=== PATIENT | female | born 1950 | race Caucasian/White ===

== ENCOUNTER → 2016-02-27 | Outpatient (CLI) | payer BC, OTHER ==
--- NOTE | 2016-02-28 07:22 | DIAGNOSTIC IMAGING REPORT ---
RIGHT KNEE INCLUDING BILATERAL STANDING AP VIEWS CLINICAL HISTORY: Right knee pain COMPARISON: None. DISCUSSION: The bones are mildly osteopenic. There are mild osteoarthritic changes present most pronounced in the lateral joint compartment. There are no acute fractures. No destructive lesions are visualized. IMPRESSION: 1. Mild osteoarthritic changes 2. No fractures identified. Electronically signed by: Iam Smith M.D. 02/28/2016 7:20 AM Dictated Date/Time: 02/28/2016 7:20 AM
== END | disposition home or self-care (01) ==
LOC: C.RDSM 13:13
PROVIDERS: ATTEND Physical Medicine & Rehabilitation Sports Medicine
DX: M25.561 Pain in right knee (principal)

== ENCOUNTER → 2016-10-03 | Outpatient (CLI) | payer OTHER ==
--- NOTE | 2016-10-03 10:35 | DIAGNOSTIC IMAGING REPORT ---
RIGHT FIFTH TOE 3 VIEWS CLINICAL HISTORY: Fracture. Follow-up study. COMPARISON: Outside radiograph dated 08/20/2016 DISCUSSION: There is a healing fracture involving the proximal phalanx of the fifth toe. There is no significant change in alignment. There are no dislocations. IMPRESSION: Healing nondisplaced fracture involving the proximal phalanx of the fifth toe Electronically signed by: Iam Smith M.D. 10/03/2016 10:34 AM Dictated Date/Time: 10/03/2016 10:33 AM
== END | disposition home or self-care (01) ==
LOC: C.RDSM 15:02
PROVIDERS: ATTEND Physician Assistant
DX: Z09 Encounter for follow-up examination after completed treatment for conditions other than malignant neoplasm (principal); S92.514D Nondisplaced fracture of proximal phalanx of right lesser toe(s), subsequent encounter for fracture with routine healing; X58.XXXD Exposure to other specified factors, subsequent encounter

== ENCOUNTER 2022-04-07 03:10 | Inpatient (IN) ==
[2022-04-07] MEDS ORDERED: SODIUM CHLORIDE 0.9% 1000ML 1,000 ML IV ONE ×2 (03:20→06:00)
[2022-04-07] MEDS ORDERED: ONDANSETRON INJ 2 MG/ML 2 ML VIAL IV STA (03:20)
[2022-04-07] MEDS ORDERED: MoRPHine SULFATE 4 MG/ML 1 ML CARP\\VIAL IV STA ×2 (03:20→04:22)
--- NOTE | 2022-04-07 03:22 | Emergency Department Note ---
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 became concerned about her heart rate when she was complaining of the symptoms earlier this morning and therefore sent her to the ED for further evaluation. On arrival to the ED the patient is tachycardic, she is otherwise hemodynamically stable, she is noted to have a fever at 38.5 on arrival. Patient states that her pain began relatively acutely earlier this evening at [facility]. She states she does does have some pain in her chest as well as her upper back on arrival. Patient denies any nausea or vomiting, denies any abdominal pain. Patient is saturating well on room air on arrival. ROS: - Per HPI *Outpatient medications and allergy history reviewed. *Pertinent external medical records reviewed. PE: General: Alert, no acute distress HEENT: Normocephalic, trachea midline Eyes: Extraocular eye movement is intact, no scleral erythema Pulmonary: Clear to auscultation bilaterally, no wheezing Cardio: Tachycardic rate and regular rhythm GI: Abdomen is soft, nontender, surgical drain noted to the right side of the abdomen without surrounding erythema or purulence, feeding tube in place : No suprapubic tenderness MSK: No evidence of trauma or malformation of the extremities, no edema Skin: No evidence of rash Neuro: Alert, no focal deficits Psychiatric: Cooperative telemetry monitor: (As interpreted by myself): - An order was placed for continuous cardiac monitoring - Patient was noted to be in sinus tachycardia with a rate of 132 EKG: (As interpreted by myself): Rate: 143 Rhythm: Sinus tachycardia Intervals: Within normal limits ST changes: No ST elevation Time: 0316 Interventions provided in ED: -IV fluid bolus, IV morphine CTA CHEST: Impression: There is a stent seen in the distal thoracic esophagus and proximal stomach. There are small bilateral pleural effusions with dependent atelectasis. No acute pulmonary embolism. No aortic dissection. Radiologist: Marcial Toribio MD Medical Decision Making: Patient presented to the emergency department with a chief complaint of chest pain and back pain, this began acutely earlier tonight at . Patient was noted to be tachycardic by staff, EMS was contacted and the patient was transported to the ED. On arrival here to the ED the patient is tachycardic in the 140s, EKG shows sinus tachycardia. IV was established and lab work obtained, patient was maintained on lunchroom monitor. Septic work-up was initiated given the patient's fever on presentation at 38.5 F. Lab work shows a leukocytosis greater than 15,000, blood cultures were drawn in the ED, procalcitonin is low, high-sensitivity troponin is mildly elevated, l actic acid is within normal limits. EKG does not show any acute ischemic changes. Chest x-ray per my interpretation shows bibasilar consolidations, CT angiography of the chest was obtained given the patient's tachycardia and chest discomfort, this does not show any evidence of pulmonary embolism, there is atelectasis noted at the bilateral bases, I suspect she may have a bilateral lower lobe pneumonia which was previously noted on CT imaging as well on 03/29. Esophageal stent is noted without any mention of abnormality by stat rad radiology. Drain surrounding the sent is noted on CT imaging by myself but not commented on by stat rad radiology. In regards to the patient surgical history she tells me that this coming Saturday she has an appointment at [facility] to have the stent in her esophagus removed. She believes this is when they are planning on removing the drain to the right side of her abdomen as well that drained the area surrounding the stent. Patient currently also has a feeding tube. On my reassessment following IV morphine patient states her pain is improved. Her tachycardia did improve as well to about 120 from 140s. Her blood pressure remained stable. Patient did have a desaturation to 88% on room air after her second dose of morphine and was placed on nasal cannula oxygen with good improvement. Given the patient's fever and leukocytosis in addition to hypoxia here in the ED and tachycardia, I do feel she would benefit from admission for trending of troponin levels, serial EKGs as needed, follow-up on blood cultures, treatment with IV antibiotics. Patient was given a dose of IV cefepime here in the ED. I discussed all the above findings with the patient and her at the bedside and they are in agreement for admission. Patient was also covered with vancomycin and Zosyn for broad-spectrum coverage and anaerobic coverage prior to admission. [facility] hospitalist service was consulted for admission, and the patient was placed for admission in stable condition. Consultants: Hospitalist service Disposition discussion held by myself with: Patient and at bedside * CRITICAL CARE TIME: ( 40 ) minutes -Stabilization of hypoxia with oxygen saturation 88% on room air requiring [place] pplemental oxygen for correction, time spent at the bedside, interpretation of diagnostic studies, discussion with other healthcare providers and arrangement of admission. Diagnosis: 1. Bilateral lower lobe pneumonia 2. Fever 3. Hypoxia, acute 4. Leukocytosis 5. Elevated high-sensitivity troponin level 6. Chest pain, acute, nonspecific 7. Tachycardia 8. Upper back pain, acute Disposition: Admission Marcin Patrick DO Emergency Medicine Past Med/Surg History Medical History Esophageal rupture High cholesterol Hypertension Hypothyroidism Right knee DJD Stomach ulcer Surgical History H/O arthroscopy of right knee History of bunionectomy Family History Other Heart disease Social History Smoking Status: Never smoker Hx Alcohol Use: No marital status: current occupational status: retired How many Children do You have: 2 Feels Safe at Home: Yes Physical Activity Frequency Comment: ACTIVE Allergies Allergies Allergy/AdvReac Type Severity Reaction Status Date / Time Latex, Natural Rubber Allergy Unknown Unknown Verified 03/28/22 01:01 Home Meds Home Medications Medication Instructions Recorded Confirmed levothyroxine 75 mcg capsule 75 mcg DAILYBB 06/29/21 03/28/22 acetaminophen 325 mg/10.15 mL oral 975 mg feeding tube Q8H 3250 MG/24 03/28/22 03/28/22 solution HOURS bisacodyl 10 mg rectal suppository 10 mg [place] DAILY PRN Constipation 03/28/22 03/28/22 docusate sodium 50 mg/5 mL oral 100 mg feeding tube BID 03/28/22 03/28/22 liquid enoxaparin 40 mg/0.4 mL 40 mg subcut DAILY 03/28/22 03/28/22 subcutaneous syringe (Lovenox) famotidine 20 mg tablet 20 mg feeding tube BID 03/28/22 03/28/22 fluconazole 100 mg tablet 400 mg feeding tube DAILY 03/28/22 03/28/22 lidocaine 5 % topical patch 1 patch topical DAILY 03/28/22 03/28/22 loratadine 10 mg tablet (Claritin) 10 mg feeding tube HS 03/28/22 03/28/22 magnesium hydroxide 400 mg/5 mL 30 ml feeding tube DAILY PRN 03/28/22 03/28/22 oral suspension (Milk of Magnesia) Constipation metoprolol tartrate 25 mg tablet 25 mg feeding tube BID 03/28/22 03/28/22 naloxone 4 mg/actuation nasal spray 4 mg intranasal ONCE PRN Opioid 03/28/22 03/28/22 Overdose ondansetron HCl 4 mg tablet 8 mg feeding tube Q6H PRN 03/28/22 03/28/22 NAUSEA/VOMITING phenol-phenolate sodium mucosal 1 spray PO Q2H PRN SCRATCHY THROAT 03/28/22 03/28/22 aerosol spray polyethylene glycol 3350 17 17 g feeding tube QDL PRN 03/28/22 03/28/22 gram/dose oral powder (Miralax) Constipation prochlorperazine maleate 5 mg 5 mg feeding tube Q8H PRN 03/28/22 03/28/22 tablet (Compazine) NAUSEA/VOMITING sennosides 8.6 mg tablet (senna) 17.2 mg feeding tube HS 03/28/22 03/28/22 sennosides 8.6 mg-docusate sodium 1 tab-cap QDL PRN Constipation 03/28/22 03/28/22 50 mg tablet (Senokot-S) tramadol 50 mg tablet 50 mg feeding tube Q6H PRN Pain 03/28/22 03/28/22 (Scale Score 7-10) Results & Data (ED) Vital Signs Vital Signs - 24 hr 04/07/22 03:26 04/07/22 03:27 04/07/22 04:07 Temperature 38.5 C H Temperature Source Oral Pulse Rate 141 H Pulse Rate [Right] 127 H Pulse Rate from SpO2 Sensor Pulse Rhythm [Right] Regular Pulse Strength [Right] Normal Respiratory Rate 20 16 Respiratory Effort / Characteristics Non-Labored Spontaneous Non-Labored Spontaneous Respiratory Depth Normal Normal Blood Pressure 147/114 H Blood Pressure [Right Arm] 173/87 H Blood Pressure Mean 125 Blood Pressure Mean [Right Arm] 115 Blood Pressure Position Lying Blood Pressure Position [Right Arm] Lying Pulse Oximetry 96 96 96 Oxygen Delivery Method Room Air Room Air Room Air Sepsis Recent Fever Within 48 Hours Yes Sepsis New/Unexplained Change in Mental Status N/A Sepsis Action Taken by Nursing Physician Notified Oxygen Flow Rate - Titration Pulse Oximetry Post Tiitration 04/07/22 04:49 04/07/22 03:28 04/07/22 03:30 Temperature Temperature Source Pulse Rate 140 H 144 H Pulse Rate [Right] Pulse Rate from SpO2 Sensor 141 H 144 H Pulse Rhythm [Right] Pulse Strength [Right] Respiratory Rate 28 H 30 H Respiratory Effort / Characteristics Respiratory Depth Blood Pressure Blood Pressure [Right Arm] Blood Pressure Mean Blood Pressure Mean [Right Arm] Blood Pressure Position Blood Pressure Position [Right Arm] Pulse Oximetry 88 L 95 94 Oxygen Delivery Method Room Air Sepsis Recent Fever Within 48 Hours Sepsis New/Unexplained Change in Mental Status Sepsis Action Taken by Nursing Oxygen Flow Rate - Titration 2 Pulse Oximetry Post Tiitration 94 04/07/22 03:45 04/07/22 04:00 04/07/22 04:08 Temperature Temperature Source Pulse Rate 135 H 125 H 127 H Pulse Rate [Right] Pulse Rate from SpO2 Sensor 179 H 125 H Pulse Rhythm [Right] Pulse Strength [Right] Respiratory Rate 28 H 28 H 24 Respiratory Effort / Characteristics Respiratory Depth Blood Pressure Blood Pressure [Right Arm] Blood Pressure Mean Blood Pressure Mean [Right Arm] Blood Pressure Position Blood Pressure Position [Right Arm] Pulse Oximetry 92 Oxygen Delivery Method Sepsis Recent Fever Within 48 Hours Sepsis New/Unexplained Change in Mental Status Sepsis Action Taken by Nursing Oxygen Flow Rate - Titration Pulse Oximetry Post Tiitration 04/07/22 04:08 04/07/22 04:15 04/07/22 04:30 Temperature Temperature Source Pulse Rate 131 H Pulse Rate [Right] Pulse Rate from SpO2 Sensor 131 H Pulse Rhythm [Right] Pulse Strength [Right] Respiratory Rate 24 Respiratory Effort / Characteristics Respiratory Depth Blood Pressure 173/87 H 146/69 H Blood Pressure [Right Arm] Blood Pressure Mean 115 94 Blood Pressure Mean [Right Arm] Blood Pressure Position Blood Pressure Position [Right Arm] Pulse Oximetry 93 Oxygen Delivery Method Sepsis Recent Fever Within 48 Hours Sepsis New/Unexplained Change in Mental Status Sepsis Action Taken by Nursing Oxygen Flow Rate - Titration Pulse Oximetry Post Tiitration 04/07/22 04:30 Temperature Temperature Source Pulse Rate 135 H Pulse Rate [Right] Pulse Rate from SpO2 Sensor 136 H Pulse Rhythm [Right] Pulse Strength [Right] Respiratory Rate 23 Respiratory Effort / Characteristics Respiratory Depth Blood Pressure Blood Pressure [Right Arm] Blood Pressure Mean Blood Pressure Mean [Right Arm] Blood Pressure Position Blood Pressure Position [Right Arm] Pulse Oximetry 94 Oxygen Delivery Method Sepsis Recent Fever Within 48 Hours Sepsis New/Unexplained Change in Mental Status Sepsis Action Taken by Nursing Oxygen Flow Rate - Titration Pulse Oximetry Post Tiitration Laboratory Data 04/07/22 03:37 04/07/22 03:37 Lab Results 04/07/22 04/07/22 04/07/22 Range/Units 03:37 03:37 03:37 WBC 15.80 H (4.8-10.8) K/ul RBC 4.26 (4.20-5.40) M/uL Hgb 11.6 L (12.0-16.0) g/dl Hct 35.3 L (37.0-47.0) % MCV 82.9 (80.0-100.0) fL MCH 27.2 (25.0-34.0) pg MCHC 32.9 (32.0-36.0) g/dL RDW Std Deviation 47.7 H (36.4-46.3) fL RDW Coeff of [place] 15.7 H (11.5-14.5) % Plt Count 636 H (130-400) K/uL MPV 9.3 L (9.4-12.4) fL Immature Gran % (Auto) 2.5 % Neut % (Auto) 83.4 % Lymph % (Auto) 6.9 % [place] % (Auto) 6.8 % Eos % (Auto) 0.0 % Baso % (Auto) 0.4 % Neut # (Auto) 13.17 H (1.40-6.50) K/uL Lymph # (Auto) 1.09 L (1.2-3.4) K/uL [place] # (Auto) 1.08 H (0.11-0.59) K/uL Eos # (Auto) 0.00 (0-0.50) K/uL Baso # (Auto) 0.06 (0-0.2) K/uL Immature Gran # (Auto) 0.40 H (0.01-0.20) K/uL PT (9.0-12.0) Seconds INR (0.9-1.1) VBG pH (7.36-7.41) VBG pCO2 (38-50) mmHg VBG pO2 mmHg VBG HCO3 mmol/L VBG O2 Saturation % VBG Base Excess mEq/L Sodium 132 L (136-145) mmol/L Potassium 3.9 (3.5-5.1) mmol/L Chloride 94 L (98-107) mmol/L Carbon Dioxide 26 (21-32) mmol/L Anion Gap 12 H (3-11) BUN 9 (6-23) mg/dl Creatinine 0.62 (0.6-1.2) mg/dl Est Cr Clr Drug Dosing 76.0 ml/min Est GFR ( Amer) 104.4 ml/min Est GFR (Non-Af Amer) 90.1 ml/min BUN/Creatinine Ratio 14.5 (10-20) Glucose 120 H (70-99(Fasting)) mg/dl Lactate 1.2 (0.4-2.0) mmol/L Calcium 10.0 (8.5-10.1) mg/dl Magnesium 1.7 (1.7-2.4) mg/dl Total Bilirubin 0.4 (0.2-1.0) mg/dl Direct Bilirubin 0.0 (0-0.2) mg/dl AST 18 (13-39) U/L ALT 32 (7-52) U/L Alkaline Phosphatase 106 H (34-104) U/L Troponin I High Sens 14.8 H (0-14) pg/ml Total Protein 8.6 H (6.0-8.3) gm/dl Albumin 3.5 (3.4-5.0) gm/dl Procalcitonin (0-0.5) ng/ml SARS-CoV-2 (PCR) (Negative) Influenza Type A (PCR) (Neg) Influenza Type B (PCR) (Neg) RSV (RT-PCR) (Neg) 04/07/22 04/07/22 04/07/22 Range/Units 03:37 03:37 03:37 WBC (4.8-10.8) K/ul RBC (4.20-5.40) M/uL Hgb (12.0-16.0) g/dl Hct (37.0-47.0) % MCV (80.0-100.0) fL MCH (25.0-34.0) pg MCHC (32.0-36.0) g/dL RDW Std Deviation (36.4-46.3) fL RDW Coeff of [place] (11.5-14.5) % Plt Count (130-400) K/uL MPV (9.4-12.4) fL Immature Gran % (Auto) % Neut % (Auto) % Lymph % (Auto) % [place] % (Auto) % Eos % (Auto) % Baso % (Auto) % Neut # (Auto) (1.40-6.50) K/uL Lymph # (Auto) (1.2-3.4) K/uL [place] # (Auto) (0.11-0.59) K/uL Eos # (Auto) (0-0.50) K/uL Baso # (Auto) (0-0.2) K/uL Immature Gran # (Auto) (0.01-0.20) K/uL PT 11.4 (9.0-12.0) Seconds INR 1.1 (0.9-1.1) VBG pH 7.48 H (7.36-7.41) VBG pCO2 39 (38-50) mmHg VBG pO2 26 mmHg VBG HCO3 29 mmol/L VBG O2 Saturation < 60.0 % VBG Base Excess 5.2 mEq/L Sodium (136-145) mmol/L Potassium (3.5-5.1) mmol/L Chloride (98-107) mmol/L Carbon Dioxide (21-32) mmol/L Anion Gap (3-11) BUN (6-23) mg/dl Creatinine (0.6-1.2) mg/dl Est Cr Clr Drug Dosing ml/min Est GFR ( Amer) ml/min Est GFR (Non-Af Amer) ml/min BUN/Creatinine Ratio (10-20) Glucose (70-99(Fasting)) mg/dl Lactate (0.4-2.0) mmol/L Calcium (8.5-10.1) mg/dl Magnesium (1.7-2.4) mg/dl Total Bilirubin (0.2-1.0) mg/dl Direct Bilirubin (0-0.2) mg/dl AST (13-39) U/L ALT (7-52) U/L Alkaline Phosphatase (34-104) U/L Troponin I High Sens (0-14) pg/ml Total Protein (6.0-8.3) gm/dl Albumin (3.4-5.0) gm/dl Procalcitonin 0.15 (0-0.5) ng/ml SARS-CoV-2 (PCR) (Negative) Influenza Type A (PCR) (Neg) Influenza Type B (PCR) (Neg) RSV (RT-PCR) (Neg) 04/07/22 Range/Units 04:06 WBC (4.8-10.8) K/ul RBC (4.20-5.40) M/uL Hgb (12.0-16.0) g/dl Hct (37.0-47.0) % MCV (80.0-100.0) fL MCH (25.0-34.0) pg MCHC (32.0-36.0) g/dL RDW Std Deviation (36.4-46.3) fL RDW Coeff of [place] (11.5-14.5) % Plt Count (130-400) K/uL MPV (9.4-12.4) fL Immature Gran % (Auto) % Neut % (Auto) % Lymph % (Auto) % [place] % (Auto) % Eos % (Auto) % Baso % (Auto) % Neut # (Auto) (1.40-6.50) K/uL Lymph # (Auto) (1.2-3.4) K/uL [place] # (Auto) (0.11-0.59) K/uL Eos # (Auto) (0-0.50) K/uL Baso # (Auto) (0-0.2) K/uL Immature Gran # (Auto) (0.01-0.20) K/uL PT (9.0-12.0) Seconds INR (0.9-1.1) VBG pH (7.36-7.41) VBG pCO2 (38-50) mmHg VBG pO2 mmHg VBG HCO3 mmol/L VBG O2 Saturation % VBG Base Excess mEq/L Sodium (136-145) mmol/L Potassium (3.5-5.1) mmol/L Chloride (98-107) mmol/L Carbon Dioxide (21-32) mmol/L Anion Gap (3-11) BUN (6-23) mg/dl Creatinine (0.6-1.2) mg/dl Est Cr Clr Drug Dosing ml/min Est GFR ( Amer) ml/min Est GFR (Non-Af Amer) ml/min BUN/Creatinine Ratio (10-20) Glucose (70-99(Fasting)) mg/dl Lactate (0.4-2.0) mmol/L Calcium (8.5-10.1) mg/dl Magnesium (1.7-2.4) mg/dl Total Bilirubin (0.2-1.0) mg/dl Direct Bilirubin (0-0.2) mg/dl AST (13-39) U/L ALT (7-52) U/L Alkaline Phosphatase (34-104) U/L Troponin I High Sens (0-14) pg/ml Total Protein (6.0-8.3) gm/dl Albumin (3.4-5.0) gm/dl Procalcitonin (0-0.5) ng/ml SARS-CoV-2 (PCR) NEGATIVE (Negative) Influenza Type A (PCR) Negative (Neg) Influenza Type B (PCR) Negative (Neg) RSV (RT-PCR) Negative (Neg) Administered Medications Sodium Chloride (Nss 1000ml) 1,000 mls @ 999 mls/hr IV .Q1H1M ONE Stop: 04/07/22 07:00 Last Admin: 04/07/22 06:10 Dose: 999 mls/hr Documented By: KEL Discontinued Medications Sodium Chloride (Nss 1000ml) 1,000 mls @ 999 mls/hr IV .Q1H1M ONE Stop: 04/07/22 04:20 Last Infusion: 04/07/22 05:04 Dose: 0 mls/hr Documented By: Admin: 04/07/22 03:38 Dose: 999 mls/hr Documented By: ISADORA Acetaminophen (Ofirmev) 1,000 mg in 100 mls @ 400 mls/hr IV NOW STA Stop: 04/07/22 04:36 Last Infusion: 04/07/22 04:57 Dose: 0 mls/hr Documented By: Admin: 04/07/22 04:31 Dose: 400 mls/hr Documented By: ISADORA Cefepime HCl (Maxipime) 2,000 mg in 20 mls @ 5 mls/min IV NOW STA; Protocol Stop: 04/07/22 06:02 Last Admin: 04/07/22 06:09 Dose: 5 mls/min Documented By: KEL Sodium Chloride (Nss 1000ml) 250 mls @ 999 mls/hr IV .Q16M ONE Stop: 04/07/22 06:16 Last Admin: 04/07/22 06:11 Dose: 999 mls/hr Documented By: KEL Ioversol (Optiray 320 500ml) 110 ml IV ONCE ONE Stop: 04/07/22 04:47 Last Admin: 04/07/22 04:41 Dose: 110 ml Documented By: LIDIA Morphine Sulfate (Morphine Sulfate 4 Mg/Ml 1 Ml Carp\Vial) 4 mg IV NOW STA Stop: 04/07/22 03:21 Last Admin: 04/07/22 03:38 Dose: 4 mg Documented By: ISADORA Morphine Sulfate (Morphine Sulfate 4 Mg/Ml 1 Ml Carp\Vial) 4 mg IV NOW STA Stop: 04/07/22 04:23 Last Admin: 04/07/22 04:30 Dose: 4 mg Documented By: ISADORA Ondansetron HCl (Ondansetron Inj 2 Mg/Ml 2 Ml Vial) 4 mg IV NOW STA Stop: 04/07/22 03:21 Last Admin: 04/07/22 03:37 Dose: 4 mg Documented By: ISADORA Discharge Plan Visit Data Chief Complaint: GI Assessment Stated Complaint: EPIGASTRIC PAIN ED Provider: Marcin Patrick Discharge Problem: Pneumonia Forms Stand Alone Forms: [facility] Prescriptions Prescriptions: No Action levothyroxine 75 mcg capsule 75 mcg DAILYBB Rx Instructions: VIA J-TUBE docusate sodium 50 mg/5 mL Liquid 100 mg feeding tube BID fluconazole 100 mg Tablet 400 mg feeding tube DAILY Rx Instructions: STARTED 03/27/22 FOR 3 DAYS. sennosides [senna] 8.6 mg Tablet 17.2 mg feeding tube HS prochlorperazine maleate [Compazine] 5 mg Tablet 5 mg feeding tube Q8H PRN (Reason: NAUSEA/VOMITING) ondansetron HCl [Zofran] 4 mg Tablet 8 mg feeding tube Q6H PRN (Reason: NAUSEA/VOMITING) sennosides-docusate sodium [Senokot-S] 8.6-50 mg Tablet 1 tab-cap QDL PRN (Reason: Constipation) Rx Instructions: VIA J-TUBE tramadol 50 mg Tablet 50 mg feeding tube Q6H PRN (Reason: Pain (Scale Score 7-10)) Chloraseptic Aerosol,[place] 1 spray PO Q2H PRN (Reason: SCRATCHY THROAT) famotidine 20 mg Tablet 20 mg feeding tube BID magnesium hydroxide [Milk of Magnesia] 400 mg/5 mL Suspension 30 ml feeding tube DAILY PRN (Reason: Constipation) bisacodyl 10 mg Suppository 10 mg PA DAILY PRN (Reason: Constipation) lidocaine 5 % Adhesive Patch,Medicated 1 patch TOPICAL DAILY Rx Instructions: APPLY AT 0500, REMOVE AT 1700. polyethylene glycol 3350 [Miralax] 17 gram/dose Powder 17 g feeding tube QDL PRN (Reason: Constipation) Rx Instructions: MIX WITH 6-8 OZ FLUID loratadine [Claritin] 10 mg Tablet 10 mg feeding tube HS enoxaparin [Lovenox] 40 mg/0.4 mL Syringe 40 mg SUBCUT DAILY metoprolol tartrate 25 mg Tablet 25 mg feeding tube BID Rx Instructions: HOLD FOR SBP <100, HR <60 acetaminophen 325 mg/10.15 mL Solution 975 mg feeding tube Q8H naloxone 4 mg/actuation [place],Non-Aerosol 4 mg INTRANASAL ONCE PRN (Reason: Opioid Overdose) Referrals Referrals: Nalini Escobedo M.D. [Primary Care Provider] - Pneumonia Qualifiers: Pneumonia type: due to unspecified organism Laterality: bilateral Lung location: unspecified part of lung Qualified Code(s): J18.9 - Pneumonia, unspecified organism
[2022-04-07 03:47] LABS: Base Excess VBG 5.2 mEq/L; HCO3 VBG 29 mmol/L; Oxygen Saturation VBG < 60.0 %; PCO2 VBG 39 mmHg (38-50); PO2 VBG 26 mmHg; pH VBG 7.48 (7.36-7.41)
[2022-04-07 03:59] LABS: Basophils # (auto) 0.06 K/uL (0-0.2); Basophils % (auto) 0.4 %; Hematocrit (blood only) 35.3 % (37.0-47.0); Hemoglobin 11.6 g/dl (12.0-16.0); Immature Granulocytes % (auto) 2.5 %; Lymphocytes # (auto) 1.09 K/uL (1.2-3.4); Lymphocytes % (auto) 6.9 %; Mean Corpuscular Hemoglobin 27.2 pg (25.0-34.0); Mean Corpuscular Hgb Conc 32.9 g/dL (32.0-36.0); Mean Corpuscular Volume 82.9 fL (80.0-100.0); Mean Platelet Volume 9.3 fL (9.4-12.4); Monocytes # (auto) 1.08 K/uL (0.11-0.59); Monocytes % (auto) 6.8 %; Neutrophils # (auto) 13.17 K/uL (1.40-6.50); Neutrophils % (auto) 83.4 %; Platelet Count 636 K/uL (130-400); RDW Coefficient of Variation 15.7 % (11.5-14.5); RDW Standard Deviation 47.7 fL (36.4-46.3); Red Blood Count 4.26 M/uL (4.20-5.40)
[2022-04-07 04:19] LABS: Albumin Level 3.5 gm/dl (3.4-5.0); BUN Creatinine Ratio 14.5 (10-20); Bilirubin,Total 0.4 mg/dl (0.2-1.0); Est GFR (African American) 104.4 ml/min; Est GFR (Non-African American) 90.1 ml/min; Magnesium 1.7 mg/dl (1.7-2.4); Potassium 3.9 mmol/L (3.5-5.1); Total Protein 8.6 gm/dl (6.0-8.3)
[2022-04-07] MEDS ORDERED: ACETAMINOPHEN 1,000 MG/100 ML VIAL IV STA (04:22)
[2022-04-07 04:25] LABS: Troponin I High Sensitivity 14.8 pg/ml (0-14)
[2022-04-07 04:27] LABS: INR 1.1 (0.9-1.1); Prothrombin Time 11.4 Seconds (9.0-12.0)
[2022-04-07] MEDS ORDERED: OPTIRAY 320 500ml IV ONE (04:46)
[2022-04-07 04:54] LABS: Influenza A virus by PCR Negative (Neg); Influenza B virus by PCR Negative (Neg); RSV by PCR Negative (Neg); SARS CoV2 RNA(COVID-19) Ceph NEGATIVE (Negative)
[2022-04-07] MEDS ORDERED: CEFEPIME 2,000 MG/20 ML VIAL IV STA ×2 (05:58→05:59)
[2022-04-07] MEDS ORDERED: DOXYCYCLINE HYCLATE 100 MG in DEXTROSE 5% 100 ML IV STA (06:00)
[2022-04-07] MEDS ORDERED: SODIUM CHLORIDE 0.9% 1000ML 250 ML IV ONE (06:01)
[2022-04-07] MEDS ORDERED: PIPERACILLIN/TAZOBACTAM 3.375 GM in DEXTROSE 5% 100 ML/100 ML BAG IV STA (06:32)
[2022-04-07] MEDS ORDERED: VANCOMYCIN HCL 1,250 MG in SODIUM CHLORIDE 0.9% 500 ML IV ONE (06:34)
[2022-04-07] MEDS ORDERED: VANCOMYCIN CONSULT ACTIVE PRN ×2 (06:34→12:01)
--- NOTE | 2022-04-07 06:52 | XRay Report ---
XR chest 1V portable HISTORY: 71 years-old Female Sepsis acute chest pain with sepsis COMPARISON: CTA chest of same day TECHNIQUE: AP view of the chest FINDINGS: Cardiac silhouette is enlarged. Atherosclerosis of the aorta. An esophageal stent is in place. There are 2 surgical catheter is noted projected over the medial right lung base along with adjacent skin s taples. No pneumothorax. Pulmonary vascular congestion. Small pleural effusions with mild bibasilar c onsolidation. Degenerative changes of the shoulders and spine. IMPRESSION: 1. Cardiomegaly with pulmonary vascular congestion. 2. Trace pleural effusions with mild bibasilar densities favoring atelectasis. 3. Esophageal stent in place with right lung base surgical drainage catheters. ACT 112: Negative or not required by law. The above report was generated using voice recognition software. It may contain grammatical, syntax o r spelling errors. Electronically signed by: Phu Rocha M.D. 04/07/2022 6:49 AM
--- NOTE | 2022-04-07 07:40 | CT Scan Report ---
CT angio chest PE protocol CT DOSE: 216.54 mGy.cm HISTORY: 71 years-old Female with PE. Acute chest pain with shortness of breath TECHNIQUE: Multiple CTA images of the chest were obtained after the intravenous administration of 110 ml Optiray. Coronal and sagittal MIPS were obtained from the axial data set and were submitted for review. All measurements were obtained according to NASCET criteria. A dose lowering technique was u tilized adhering to the principles of ALARA. COMPARISON: CTA chest 03/29/2022 FINDINGS: CTA: Cardiomegaly with small pericardial effusion. Moderate coronary artery calcifications. No thoracic ao rtic aneurysm or dissection. Unremarkable thoracic aorta. No pulmonary emboli identified. CT CHEST: Unchanged positioning of the esophageal stent with adjacent surgical clips. Circumferential esophagea l wall thickening with adjacent inflammatory stranding redemonstrated. The stent is debris and fluid- filled. Small pleural effusions with dependent bibasilar consolidation.There are 2 surgical drains pr esent posterior to the gastroesophageal junction from a right flank approach. No organized/drainable fluid collection is identified at this site. Mild intralobular septal thickening. No pneumothorax. Fi ndings are similar to the prior study. The central airways are patent. Residual enteric contrast within the large bowel. No acute fracture identified. Unchanged mid thoraci c compression deformities. IMPRESSION: 1. No pulmonary emboli identified. 2. Cardiomegaly with mild pulmonary edema, small pleural effusions and dependent bibasilar consolidat ion suggestive of atelectasis . 3. Unchanged positioning of the esophageal stent with stable appearance of the esophageal wall thicke enel. 4. There are 2 surgical drains present posterior to the gastroesophageal junction from a right flank approach. No organized/drainable fluid collection is identified at this site. 5. No pneumothorax. ACT 112: Negative or not required by law. The above report was generated using voice recognition software. It may contain grammatical, syntax o r spelling errors. Electronically signed by: Phu Rocha M.D. 04/07/2022 7:37 AM
[2022-04-07] MEDS ORDERED: HYDROmorphone INJ 0.5 MG/0.5 ML SYR IV STA (08:40)
[2022-04-07] MEDS ORDERED: KETOROLAC TROMETHAMINE 15 MG/ML VIAL IV ONE (10:00)
--- NOTE | 2022-04-07 10:57 | Critical Care Consultation ---
Date of Consultation April 07, 2022 Assessment & Plan (1) Sepsis: (2) Anemia: (3) Hyponatremia: (4) Mediastinitis: (5) Back pain: Plan Impression: 71-year-old female with history of esophageal perforation status postsurgical repair with esophageal stenting and JOHANA drains in place presenting now with fever, tachycardia, and upper back pain. Her esophagram yesterday demonstrated no extravasation but did show an area of focal narrowing in the proximal aspect of the esophagus just outside the stent. Her JOHANA drains do have some purulent appearing drainage. Recommendations: 1. Discussed extensively with the patient and her at bedside as well as with admitting hospitalist. Her case is complicated by the fact that we do not have specialists who could manage some of her issues. Specifically, GI here would be unlikely to intervene on an esophageal stent placed at [facility] and we do not have thoracic surgery or infectious disease available. Apparently [facility] has felt that the patient did not require transfer their evaluation at this point time so we will proceed as noted below. 2. At this point in time given the purulent appearing drainage from the JOHANA drains I think that cover the patient prickly for mediastinitis with vancomycin and Diflucan. Recommend culturing the JOHANA drainage to assist in antimicrobial guidance. Her procalcitonin is normal however white count is elevated and she is febrile. 3. Would recommend repeating Gastrografin swallow. 4. Analgesia per primary service. 5. In the setting of normal lactate, normal mental status, adequate hemodynamics, and normal oxygenation status, I am unclear what critical care interventions the patient requires currently other than close monitoring. I will continue to follow this patient closely and should she deteriorate, would be happy to care for her in a critical care setting however the absence of the specialties noted above would likely necessitate her transfer to a higher level of care. The above recommendations and plan were discussed with the patient and spouse at bedside as well as with the admitting hospitalist. Thanks for the opportunity of assisting in the care of this patient. We will continue to follow with you. History of Present Illness History of Present Illness Asked by hospitalist to assist in evaluation management this patient with SIRS criteria and a complicated GI surgical history. History is obtained from discussion with the hospitalist, reviewed electronic medical record, and interviewed the patient and her at bedside. Patient is a 71-year-old female with a history of esophageal rupture status postrepair and esophageal stent February 2022 at [facility]. She had a feeding tube placed and has 2 JOHANA drains. She has an appointment at [facility] on Saturday to have the stent removed. She had been rehabbing at [facility]. She was brought to the emergency room with chest and upper back pain. She was found to be tachycardic and febrile. She was evaluated in the emergency room with a CT scan which demonstrated no evidence of PE. There were small effusions. The drains were in place. There was a stricture/area of focal narrowing at the esophagus proximal to the esophageal stent and the esophageal stent was fluid-filled. The patient denies any dysphagia and has been taking oral intake. There was initial concern about pericarditis and the patient was administered Toradol. Echocardiogram and cardiology consultation are pending. The admitting hospitalist discussed with the covering thoracic surgeon at [facility] who did not recommend transfer and continued supportive care. Allergies Allergy/AdvReac Type Severity Reaction Status Date / Time Latex, Natural Rubber Allergy Unknown Unknown Verified 03/28/22 01:01 Home Medications Medication Instructions Recorded Confirmed Type levothyroxine 75 mcg capsule 75 mcg DAILYBB 06/29/21 04/07/22 History acetaminophen 325 mg/10.15 mL oral 975 mg feeding tube Q8H 3250 MG/24 03/28/22 04/07/22 History solution HOURS bisacodyl 10 mg rectal suppository 10 mg WV DAILY PRN Constipation 03/28/22 04/07/22 History docusate sodium 50 mg/5 mL oral 100 mg feeding tube BID 03/28/22 04/07/22 History liquid enoxaparin 40 mg/0.4 mL 40 mg subcut DAILY 03/28/22 04/07/22 History subcutaneous syringe (Lovenox) famotidine 20 mg tablet 20 mg feeding tube BID 03/28/22 04/07/22 History fluconazole 100 mg tablet 400 mg feeding tube DAILY 03/28/22 04/07/22 History lidocaine 5 % topical patch 1 patch topical DAILY 03/28/22 04/07/22 History loratadine 10 mg tablet (Claritin) 10 mg feeding tube HS 03/28/22 04/07/22 History magnesium hydroxide 400 mg/5 mL 30 ml feeding tube DAILY PRN 03/28/22 04/07/22 History oral suspension (Milk of Magnesia) Constipation metoprolol tartrate 25 mg tablet 25 mg feeding tube BID 03/28/22 04/07/22 History naloxone 4 mg/actuation nasal spray 4 mg intranasal ONCE PRN Opioid 03/28/22 04/07/22 History Overdose ondansetron HCl 4 mg tablet 8 mg feeding tube Q6H PRN 03/28/22 04/07/22 History NAUSEA/VOMITING phenol-phenolate sodium mucosal 1 spray PO Q2H PRN SCRATCHY THROAT 03/28/22 04/07/22 History aerosol spray polyethylene glycol 3350 17 17 g feeding tube QDL PRN 03/28/22 04/07/22 History gram/dose oral powder (Miralax) Constipation prochlorperazine maleate 5 mg 5 mg feeding tube Q8H PRN 03/28/22 04/07/22 History tablet (Compazine) NAUSEA/VOMITING sennosides 8.6 mg tablet (senna) 17.2 mg feeding tube HS 03/28/22 04/07/22 History sennosides 8.6 mg-docusate sodium 1 tab-cap QDL PRN Constipation 03/28/22 04/07/22 History 50 mg tablet (Senokot-S) tramadol 50 mg tablet 50 mg feeding tube Q6H PRN Pain 03/28/22 04/07/22 History (Scale Score 7-10) Patient History Medical History Esophageal rupture High cholesterol Hypertension Hypothyroidism Right knee DJD Stomach ulcer Surgical History H/O arthroscopy of right knee History of bunionectomy Family History Other Heart disease Social History Smoking Status: Never smoker Hx Alcohol Use: No marital status: current occupational status: retired How many Children do You have: 2 Feels Safe at Home: Yes Physical Activity Frequency Comment: ACTIVE Review of Systems Review of Systems: Please refer to admission H&P Physical Exam Constitutional: well nourished; not in distress Neck: trachea midline, no thyromegaly Respiratory: normal respiratory effort, lungs clear to auscultation Cardiovascular: RRR, no murmur, no edema Gastrointestinal (Abdomen): PEG/J-tube in place. There are 2 JOHANA drains which exited on the lateral aspect of the right abdominal wall. There is cloudy drainage in both of the drains which the reports is always been there Musculoskeletal: Extremities: extremities normal to inspection Skin: no rashes, warm and dry Neurologic: Nonfocal exam Lymphatic: no cervical lymphadenopathy Results & Data Results & Data ([facility]) Vital Signs (Past 12 Hours) Vital Signs Temp Pulse Pulse Resp BP BP Pulse Ox 04/07/22 09:03 125 H 24 139/76 99 04/07/22 08:30 123 H 20 139/76 98 04/07/22 08:00 122 H 22 157/85 H 99 04/07/22 08:02 125 H 04/07/22 07:30 115 H 23 151/73 H 100 04/07/22 07:00 118 H 24 157/86 H 99 04/07/22 06:30 120 H 29 H 99 04/07/22 06:30 152/80 H 04/07/22 06:00 127 H 26 H 98 04/07/22 06:00 156/73 H 04/07/22 05:30 128 H 26 H 98 04/07/22 05:30 150/75 H 04/07/22 05:00 123 H 29 H 99 04/07/22 05:00 164/77 H 04/07/22 04:30 135 H 23 94 04/07/22 04:30 146/69 H 04/07/22 04:15 131 H 24 93 04/07/22 04:08 173/87 H 04/07/22 04:08 127 H 24 92 04/07/22 04:00 125 H 28 H 04/07/22 03:45 135 H 28 H 04/07/22 03:30 144 H 30 H 94 04/07/22 03:28 140 H 28 H 95 04/07/22 04:49 88 L 04/07/22 04:07 127 H 16 173/87 H 96 04/07/22 03:27 38.5 C H 141 H 20 147/114 H 96 04/07/22 03:26 96 O2 Del Method O2 Flow Rate 04/07/22 09:03 Nasal Cannula 2 04/07/22 08:30 Nasal Cannula 2 04/07/22 08:00 Nasal Cannula 2 04/07/22 08:02 04/07/22 07:30 Nasal Cannula 04/07/22 07:00 Room Air 04/07/22 06:30 04/07/22 06:30 04/07/22 06:00 04/07/22 06:00 04/07/22 05:30 04/07/22 05:30 04/07/22 05:00 04/07/22 05:00 04/07/22 04:30 04/07/22 04:30 04/07/22 04:15 04/07/22 04:08 04/07/22 04:08 04/07/22 04:00 04/07/22 03:45 04/07/22 03:30 04/07/22 03:28 04/07/22 04:49 Room Air 04/07/22 04:07 Room Air 04/07/22 03:27 Room Air 04/07/22 03:26 Room Air Critical Care Results & Data Vital Signs (Past 12 Hours) Vital Signs Temp Pulse Pulse Resp BP BP Pulse Ox 04/07/22 09:03 125 H 24 139/76 99 04/07/22 08:30 123 H 20 139/76 98 04/07/22 08:00 122 H 22 157/85 H 99 04/07/22 08:02 125 H 04/07/22 07:30 115 H 23 151/73 H 100 04/07/22 07:00 118 H 24 157/86 H 99 04/07/22 06:30 120 H 29 H 99 04/07/22 06:30 152/80 H 04/07/22 06:00 127 H 26 H 98 04/07/22 06:00 156/73 H 04/07/22 05:30 128 H 26 H 98 04/07/22 05:30 150/75 H 04/07/22 05:00 123 H 29 H 99 04/07/22 05:00 164/77 H 04/07/22 04:30 135 H 23 94 04/07/22 04:30 146/69 H 04/07/22 04:15 131 H 24 93 04/07/22 04:08 173/87 H 04/07/22 04:08 127 H 24 92 04/07/22 04:00 125 H 28 H 04/07/22 03:45 135 H 28 H 04/07/22 03:30 144 H 30 H 94 04/07/22 03:28 140 H 28 H 95 04/07/22 04:49 88 L 04/07/22 04:07 127 H 16 173/87 H 96 04/07/22 03:27 38.5 C H 141 H 20 147/114 H 96 04/07/22 03:26 96 O2 Del Method O2 Flow Rate 04/07/22 09:03 Nasal Cannula 2 04/07/22 08:30 Nasal Cannula 2 04/07/22 08:00 Nasal Cannula 2 04/07/22 08:02 04/07/22 07:30 Nasal Cannula 04/07/22 07:00 Room Air 04/07/22 06:30 04/07/22 06:30 04/07/22 06:00 04/07/22 06:00 04/07/22 05:30 04/07/22 05:30 04/07/22 05:00 04/07/22 05:00 04/07/22 04:30 04/07/22 04:30 04/07/22 04:15 04/07/22 04:08 04/07/22 04:08 04/07/22 04:00 04/07/22 03:45 04/07/22 03:30 04/07/22 03:28 04/07/22 04:49 Room Air 04/07/22 04:07 Room Air 04/07/22 03:27 Room Air 04/07/22 03:26 Room Air Lab & Micro Results (Past 24 Hours) RBC 4.26 M/uL (4.20-5.40) 04/07/22 WBC 15.80 K/ul (4.8-10.8) H 04/07/22 Hgb 11.6 g/dl (12.0-16.0) L 04/07/22 Hct 35.3 % (37.0-47.0) L 04/07/22 MCV 82.9 fL (80.0-100.0) 04/07/22 MCH 27.2 pg (25.0-34.0) 04/07/22 MCHC 32.9 g/dL (32.0-36.0) 04/07/22 RDW Standard Deviation 47.7 fL (36.4-46.3) H 04/07/22 RDW Coefficient of Variation 15.7 % (11.5-14.5) H 04/07/22 Plt Count 636 K/uL (130-400) H 04/07/22 MPV 9.3 fL (9.4-12.4) L 04/07/22 Neutrophils (%) (Auto) 83.4 % 04/07/22 Lymphocytes (%) (Auto) 6.9 % 04/07/22 Monocytes # (Auto) 1.08 K/uL (0.11-0.59) H 04/07/22 Eosinophils # (Auto) 0.00 K/uL (0-0.50) 04/07/22 Immature Granulocyte % (Auto) 2.5 % 04/07/22 Neutrophils # (Auto) 13.17 K/uL (1.40-6.50) H 04/07/22 Lymphocytes # (Auto) 1.09 K/uL (1.2-3.4) L 04/07/22 Monocytes # (Auto) 1.08 K/uL (0.11-0.59) H 04/07/22 Eosinophils # (Auto) 0.00 K/uL (0-0.50) 04/07/22 Basophils # (Auto) 0.06 K/uL (0-0.2) 04/07/22 Immature Granulocyte # (Auto) 0.40 K/uL (0.01-0.20) H 04/07 Na 132 mmol/L (136-145) L 04/07/22 K 3.9 mmol/L (3.5-5.1) 04/07/22 Cl 94 mmol/L (98-107) L 04/07/22 CO2 26 mmol/L (21-32) 04/07/22 Anion Gap 12 (3-11) H 04/07/22 BUN 9 mg/dl (6-23) 04/07/22 Creatinine 0.62 mg/dl (0.6-1.2) 04/07/22 Estimated GFR ( Amer) 104.4 ml/min 04/07/22 Estimated GFR (Non-Af Amer) 90.1 ml/min 04/07/22 BUN/Creatinine Ratio 14.5 (10-20) 04/07/22 Glu 120 mg/dl (70-99(Fasting)) H 04/07/22 Ca 10.0 mg/dl (8.5-10.1) 04/07/22 Total Bilirubin 0.4 mg/dl (0.2-1.0) 04/07/22 Direct Bilirubin 0.0 mg/dl (0-0.2) 04/07/22 AST 18 U/L (13-39) 04/07/22 ALT 32 U/L (7-52) 04/07/22 Alkaline Phosphatase 106 U/L (34-104) H 04/07/22 TP 8.6 gm/dl (6.0-8.3) H 04/07/22 Albumin 3.5 gm/dl (3.4-5.0) 04/07/22 Mg 1.7 mg/dl (1.7-2.4) 04/07/22 03:37 Calcium Level 10.0 mg/dl (8.5-10.1) 04/07/22 03:37 Prothromb Time International Ratio 1.1 (0.9-1.1) 04/07/22 03:3 7 Venous Blood pH 7.48 (7.36-7.41) H 04/07/22 03:37 Venous Blood Partial Pressure CO2 39 mmHg (38-50) 04/07/22 03:3 7 Venous Blood Partial Pressure O2 26 mmHg 04/07/22 03:37 Venous Blood HCO3 29 mmol/L 04/07/22 03:37 Venous Blood Base Excess 5.2 mEq/L 04/07/22 03:37 Venous Blood Oxygen Saturation < 60.0 % 04/07/22 03:37 Diagnostic Findings (Past 24 Hours) Chest X-Ray 04/07/22 03:19 XR chest 1V portable HISTORY: 71 years-old Female Sepsis acute chest pain with sepsis COMPARISON: CTA chest of same day TECHNIQUE: AP view of the chest FINDINGS: Cardiac silhouette is enlarged. Atherosclerosis of the aorta. An esophageal quinton nt is in place. There are 2 surgical catheter is noted projected over the medial right lung base along with adjacent skin clarissa. No pneumothorax. Pulmonary vascular congestion. Small pleural effusions with mild bibasilar consolidation. Degenerative changes of the shoulders and spine. IMPRESSION: 1. Cardiomegaly with pulmonary vascular congestion. 2. Trace pleural effusions with mild bibasilar densities favoring atelectasis. 3. Esophageal stent in place with right lung base surgical drainage catheters. ACT 112: Negative or not required by law. The above report was generated using voice recognition software. It may contain grammatical, syntax or spelling errors. Electronically signed by: Phu Rocha M.D. 04/07/2022 6:49 AM Chest CTA 04/07/22 03:22 CT angio chest PE protocol CT DOSE: 216.54 mGy.cm HISTORY: 71 years-old Female with PE. Acute chest pain with shortness of breath TECHNIQUE: Multiple CTA images of the chest were obtained after the intravenous administration of 110 ml Optiray. Coronal and sagittal MIPS were obtained from the axial data set and were submitted for review. All measurements were obtained according to NASCET criteria. A dose lowering technique was utilized adhering to the principles of ALARA. COMPARISON: CTA chest 03/29/2022 FINDINGS: CTA: Cardiomegaly with small pericardial effusion. Moderate coronary artery calcifications. No thoracic aortic aneurysm or dissection. Unremarkable thoracic aorta. No pulmonary emboli identified. CT CHEST: Unchanged positioning of the esophageal stent with adjacent surgical clips. Circumferential esophageal wall thickening with adjacent inflammatory stranding redemonstrated. The stent is debris and fluid-filled. Small pleural effusions with dependent bibasilar consolidation.There are 2 surgical drains present posterior to the gastroesophageal junction from a right flank approach. No organized/drainable fluid collection is identified at this site. Mild intralobular septal thickening. No pneumothorax. Findings are similar to the prior study. The central airways are patent. Residual enteric contrast within the large bowel. No acute fracture identified. Unchanged mid thoracic compression deformities. IMPRESSION: 1. No pulmonary emboli identified. 2. Cardiomegaly with mild pulmonary edema, small pleural effusions and dependent bibasilar consolidation suggestive of atelectasis . 3. Unchanged positioning of the esophageal stent with stable appearance of the esophageal wall thickening. 4. There are 2 surgical drains present posterior to the gastroesophageal junction from a right flank approach. No organized/drainable fluid collection is identified at this site. 5. No pneumothorax. ACT 112: Negative or not required by law. The above report was generated using voice recognition software. It may contain grammatical, syntax or spelling errors. Electronically signed by: Phu Rocha M.D. 04/07/2022 7:37 AM I & O Totals 24 Hours 04/06/22 04/07/22 04/08/22 06:59 06:59 06:59 Intake Total 1100 / 1100 1365 / 1365 Balance 1100 / 1100 1365 / 1365 Cumulative 04/07/22 03:03 thru 04/07/22 07:57 Intake Total 2465 Balance 2465 RT Ventilator Mngmt (Last Documented) Ventilator Ordered Settings Respiratory Rate 24 04/07/22 09:03 Ventilator - PT Measurements Respiratory Rate 24 Coding Level of Care Code INP/OBS CONSULT LVL 4, 60 MIN Diagnoses Sepsis A41.9 Anemia D64.9 Hyponatremia E87.1 Mediastinitis J98.51 Back pain M54.9
--- NOTE | 2022-04-07 11:24 | Electrocardiogram Report ---
Test Reason : Blood Pressure : / mmHG Vent. Rate : 143 BPM Atrial Rate : 143 BPM P-R Int : 124 ms QRS Dur : 068 ms QT Int : 286 ms P-R-T Axes : 056 048 026 degrees QTc Int : 441 ms Poor data quality, interpretation may be adversely affected Sinus tachycardia Possible Left atrial enlargement Borderline ECG When compared with ECG of 29-MAR-2022 11:22, Vent. rate has increased BY 57 BPM Nonspecific T wave abnormality no longer evident in Anterior leads Confirmed by Tray Cheema ([id number]) on 04/07/2022 11:24:45 AM Referred By: Nalini Escobedo Confirmed By:Tray Cheema
--- NOTE | 2022-04-07 11:35 | History & Physical Report ---
Date of Service April 07, 2022 Assessment & Plan (1) Pleuritic chest pain: Plan: Patient presents with acute, severe pleuritic chest pain that is positional in nature (worse with supine position) and which had no response to SL nitroglycerin or copious narcotics. IV NSAID therapy did finally relieve her pain. Constellation of symptoms, exam findings, and imaging/labs point towards acute pericarditis as well as mediastinitis as the likely culprits. I don't see evidence of pneumonia on imaging. There are no PEs or aortic dissection on CTA. Her symptoms and labs are not c/w ACS. See below. (2) Sepsis: Plan: 2nd to #3, #4. Blood cultures have been sent. Broad-spectrum IV antibiotics have been initiated. Will continue IV zosyn, vancomycin. Will add IV antifungals. See below. To be complete a [employer] respiratory panel has been sent and returned fully negative. U/a modestly dirty - above antibiotics should suffice. (3) Acute pericarditis: Plan: As noted above her clinical picture is suggestive of pericarditis. This may be secondary to her suspected mediastinitis. There is no evidence of tamponade physiology as seen on STAT echo. There is a small pericardial effusion especially adjacent to the right atrium. After speaking with Dr Sage Bonner in [place] colchicine +/- motrin are acceptable despite the recent esophageal surgery. She will be maintained on IV PPI. Due to concerns of #4 below will continue broad-spectrum IV antibiotics. I have consulted Dr Cheema from cardiology regarding the suspected pericarditis and will defer to him initiation of colchicine/NSAIDs. I appreciate his consultation & recommendations. (4) Mediastinitis: Plan: The patient has 2 drains that enter the body in the RUQ/right lower costal margin region and traverse to near the esophageal stent. The drains contain a small amount of cloudy appearing fluid. This may suggest - especially in light of her leukocytosis, elevated inflammatory markers, symptoms, recent surgery, etc - that she has mediastinitis. Will send this fluid for culture. Blood cultures have been dispatched. Broad-spectrum IV antibiotics including anti-fungal coverage have been started. Cont dilaudid IV prn for pain control. NSAIDs/colchicine as in #[address] Cohen from pulmonary/critical care was consulted for his opinion and he is heavily concerned about mediastinitis. I appreciate his consultation & recommendations. (5) Esophageal rupture: Plan: s/p surgical repair with stent on 03/10/22 at [facility]. Barium swallow at [facility] on 04/06/22 without evidence of leak. CTA chest as noted above. Cont PPI IV BID. (6) Hyponatremia: Plan: Radiographically the patient has mild pulmonary edema, small effusions, etc. She may have mild diastolic CHF in the setting of the above. The hyponatremia may be secondary to this. She will need serial labs. Defer any diuresis to cardiology. (7) Pericardial effusion: Plan: as above (8) Hypothyroidism: Plan: Cont synthroid 75mcg daily (9) Hypertension: Plan: Continue metoprolol tartrate 25mg BID (10) Jejunostomy tube present: Plan: No issues at this time Until the presenting issues are more stable will keep NPO via the oral route and the enteral route (11) Elevated troponin: Plan: Likely myocardial demand ischemia in the setting of #2, #3, #4 above no evidence of acute NJ/ACS (12) DVT prophylaxis: Plan: cont lovenox 40mg daily Plan D/c summary to be requested from [facility] for more details re: her complex history Will call and discuss her care with the medical records coder at [facility] updated at bedside History of Present Illness Chief Complaint: severe chest pain Primary Care Provider: Nalini Escobedo 71yo female with complicated recent medical history including esophageal rupture discovered at [facility] on 03/09/22. Apparently she had had a severe GI illness with severe vomiting & retching which was thought to be the cause of the esophageal rupture. She was emergently transferred to [facility] in [place]. On 03/10/22 she underwent esophageal rupture repair. A distal esophageal stent was placed during her procedure as well. The surgeon involved in her care was Dr Carlos A Grajeda. I do not have records from [facility], but per the 's recollection her stay was complicated by pleural effusion (?) requiring chest tube placement. She stayed at [facility] for ~10 days. She ultimately was transferred to [facility] for acute rehab where she has been since her hospital discharge. Patient reports that while at [facility] a J-tube was placed for enteral feedings. She was receiving such upon discharge to [facility] and was on the feedings until ~2 days ago. She's had no issues with the J-tube. In addition, she was discharged from [facility] with 2 JOHANA drains that track to the esophageal stent region. The patient reports she had a "good day" yesterday and participated in rehab activities. Over the last 48 hours she has had soft foods (mashed potatoes, etc) and was tolerating such without dysphagia or odynophagia. Denies any recent central chest pain. She has had a small amount of dyspnea on exertion with PT/OT but nothing severe. This am ~0130 she was awoken from sleep with severe, pleuritic central chest pain radiating to her shoulders. The pain has been continuous since that time. SL nitro x 2 provided NO relief of pain. She received an additional 8mg of morphine IV since ER arrival without any change in her pain. She has had mild dyspnea associated with the pain. The pain seems to be worse with laying down in bed. In fact, she had to use the toilet in the ER and was comfortable until walking back to the stretcher and laying down again. This precipitated severe pain again in the substernal region. Denies that at any time the pain radiating into either arm. Denies cough. Denies recent fevers. She has had off/on cold chills over the last few weeks but no fever to her knowledge. Upon ER presentation today she had temp of 38.5 C along with tachycardia. She just underwent a barium swallow evaluation yesterday and this was NEGATIVE for any esophageal extravasation of contrast. Shortly after my visit with her I called and spoke with the on-call thoracic surgeon Dr Sage Bonner. We reviewed her presenting complaints today, her labs, her CTA chest findings, etc. At the time of this first call it was felt that she did not require acute transfer to [place]. The esophageal & stent fluid/debris seen on CT was apparently within normal limits following this surgery. STAT echo was performed showing trace-small pericardial effusion with no tamponade features. EF was preserved. I received permission to give NSAIDs to Ms Dean from Dr Bonner at [facility]. Toradol 15mg IV x 1 was given and about 20-25 minutes later she reported her pain was finally improved. Allergies Allergy/AdvReac Type Severity Reaction Status Date / Time Latex, Natural Rubber Allergy Unknown Unknown Verified 03/28/22 01:01 Home Medications Medication Instructions Recorded Confirmed Type levothyroxine 75 mcg capsule 75 mcg DAILYBB 06/29/21 04/07/22 History acetaminophen 325 mg/10.15 mL oral 975 mg feeding tube Q8H 3250 MG/24 03/28/22 04/07/22 History solution HOURS bisacodyl 10 mg rectal suppository 10 mg [place] DAILY PRN Constipation 03/28/22 04/07/22 History docusate sodium 50 mg/5 mL oral 100 mg feeding tube BID 03/28/22 04/07/22 History liquid enoxaparin 40 mg/0.4 mL 40 mg subcut DAILY 03/28/22 04/07/22 History subcutaneous syringe (Lovenox) famotidine 20 mg tablet 20 mg feeding tube BID 03/28/22 04/07/22 History fluconazole 100 mg tablet 400 mg feeding tube DAILY 03/28/22 04/07/22 History lidocaine 5 % topical patch 1 patch topical DAILY 03/28/22 04/07/22 History loratadine 10 mg tablet (Claritin) 10 mg feeding tube HS 03/28/22 04/07/22 History magnesium hydroxide 400 mg/5 mL 30 ml feeding tube DAILY PRN 03/28/22 04/07/22 History oral suspension (Milk of Magnesia) Constipation metoprolol tartrate 25 mg tablet 25 mg feeding tube BID 03/28/22 04/07/22 History naloxone 4 mg/actuation nasal spray 4 mg intranasal ONCE PRN Opioid 03/28/22 04/07/22 History Overdose ondansetron HCl 4 mg tablet 8 mg feeding tube Q6H PRN 03/28/22 04/07/22 History NAUSEA/VOMITING phenol-phenolate sodium mucosal 1 spray PO Q2H PRN SCRATCHY THROAT 03/28/22 04/07/22 History aerosol spray polyethylene glycol 3350 17 17 g feeding tube QDL PRN 03/28/22 04/07/22 History gram/dose oral powder (Miralax) Constipation prochlorperazine maleate 5 mg 5 mg feeding tube Q8H PRN 03/28/22 04/07/22 History tablet (Compazine) NAUSEA/VOMITING sennosides 8.6 mg tablet (senna) 17.2 mg feeding tube HS 03/28/22 04/07/22 History sennosides 8.6 mg-docusate sodium 1 tab-cap QDL PRN Constipation 03/28/22 04/07/22 History 50 mg tablet (Senokot-S) tramadol 50 mg tablet 50 mg feeding tube Q6H PRN Pain 03/28/22 04/07/22 History (Scale Score 7-10) Past Med/Surg History Medical History (Updated 04/07/22 @ 11:55 by Carlos A Herr) Esophageal rupture High cholesterol Hypertension Hyponatremia Hypothyroidism Jejunostomy tube present Right knee DJD Stomach ulcer Surgical History H/O arthroscopy of right knee H/O: hysterectomy History of bunionectomy History of esophageal surgery 2nd esophageal rupture; 03/10/22 - [facility] - Dr Carlos A Grajeda Family History Mother Stroke Father Coronary heart disease Social History (Updated 04/07/22 @ 11:40 by Carlos A Herr) Smoking Status: Never smoker Hx Alcohol Use: No marital status: current occupational status: retired 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; [employer]; 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 routine How many Children do You have: 2 Feels Safe at Home: Yes Physical Activity Frequency Comment: ACTIVE Review of Systems Review of Systems: gen - no fever, but off/on chills for several days; appetite fair eyes - no visual changes HENT - no ear pain, sore throat, congestion CV - severe pleuritic chest pain starting early this am pulm - mild dyspnea on exertion while in rehab; dyspnea at rest this am; no cough GI - no abd pain, nausea, vomiting today; but had vomiting early in the stay at rehab - no LUTS or dysuria musculo - no complaints of joint pain skin - no rashes neuro - no headache endo - no diabetes Physical Exam Physical Exam: gen - VERY uncomfortable c/o chest pain, sickly appearing eyes - PERRL, pupils about 2mm b/l and reactive HENT - MMM, no lesions, no thrush neck - no obvious JVD, no masses or lymph nodes CV - tachy, s1 s2, ?rub heard at the Left mid-sternal border chest - no reproducible chest wall tenderness to palpation; 2 drains located at the lower right costal margin attached to JOHANA bulbs; there is a small amount of cloudy appearing fluid in each but no blood abd - soft NT ND BS+; J-tube in place; insertion site clean; no HSM ext - no edema, pulses 2+ b/l neuro - strength 5/5 x 4 exts skin - scattered scars/healed wounds right chest from prior chest tube site psych - anxious, but a/o x 3 Results & Data Results & Data ([facility]) Vital Signs (Past 12 Hours) Vital Signs Temp Pulse Pulse Resp BP BP Pulse Ox 04/07/22 09:03 125 H 24 139/76 99 04/07/22 08:30 123 H 20 139/76 98 04/07/22 08:00 122 H 22 157/85 H 99 04/07/22 08:02 125 H 04/07/22 07:30 115 H 23 151/73 H 100 04/07/22 07:00 118 H 24 157/86 H 99 04/07/22 06:30 120 H 29 H 99 04/07/22 06:30 152/80 H 04/07/22 06:00 127 H 26 H 98 04/07/22 06:00 156/73 H 04/07/22 05:30 128 H 26 H 98 04/07/22 05:30 150/75 H 04/07/22 05:00 123 H 29 H 99 04/07/22 05:00 164/77 H 04/07/22 04:30 135 H 23 94 04/07/22 04:30 146/69 H 04/07/22 04:15 131 H 24 93 04/07/22 04:08 173/87 H 04/07/22 04:08 127 H 24 92 04/07/22 04:00 125 H 28 H 04/07/22 03:45 135 H 28 H 04/07/22 03:30 144 H 30 H 94 04/07/22 03:28 140 H 28 H 95 04/07/22 04:49 88 L 04/07/22 04:07 127 H 16 173/87 H 96 04/07/22 03:27 38.5 C H 141 H 20 147/114 H 96 02/18/23 03:26 96 O2 Del Method O2 Flow Rate 04/07/22 09:03 Nasal Cannula 2 04/07/22 08:30 Nasal Cannula 2 04/07/22 08:00 Nasal Cannula 2 04/07/22 08:02 04/07/22 07:30 Nasal Cannula 04/07/22 07:00 Room Air 04/07/22 06:30 04/07/22 06:30 04/07/22 06:00 04/07/22 06:00 04/07/22 05:30 04/07/22 05:30 04/07/22 05:00 04/07/22 05:00 04/07/22 04:30 04/07/22 04:30 04/07/22 04:15 04/07/22 04:08 04/07/22 04:08 04/07/22 04:00 04/07/22 03:45 04/07/22 03:30 04/07/22 03:28 04/07/22 04:49 Room Air 04/07/22 04:07 Room Air 04/07/22 03:27 Room Air 04/07/22 03:26 Room Air Laboratory Results Laboratory Results - last 24 hr 04/07/22 04/07/22 04/07/22 03:37 03:37 03:37 WBC 15.80 H RBC 4.26 Hgb 11.6 L Hct 35.3 L MCV 82.9 MCH 27.2 MCHC 32.9 RDW Std Deviation 47.7 H RDW Coeff of [place] 15.7 H Plt Count 636 H MPV 9.3 L Immature Gran % (Auto) 2.5 Neut % (Auto) 83.4 Lymph % (Auto) 6.9 [place] % (Auto) 6.8 Eos % (Auto) 0.0 Baso % (Auto) 0.4 Neut # (Auto) 13.17 H Lymph # (Auto) 1.09 L [place] # (Auto) 1.08 H Eos # (Auto) 0.00 Baso # (Auto) 0.06 Immature Gran # (Auto) 0.40 H ESR PT INR VBG pH VBG pCO2 VBG pO2 VBG HCO3 VBG O2 Saturation VBG Base Excess Sodium 132 L Potassium 3.9 Chloride 94 L Carbon Dioxide 26 Anion Gap 12 H BUN 9 Creatinine 0.62 Est Cr Clr Drug Dosing 76.0 Est GFR ( Amer) 104.4 Est GFR (Non-Af Amer) 90.1 BUN/Creatinine Ratio 14.5 Glucose 120 H Lactate 1.2 Calcium 10.0 Magnesium 1.7 Total Bilirubin 0.4 Direct Bilirubin 0.0 AST 18 ALT 32 Alkaline Phosphatase 106 H Troponin I High Sens 14.8 H B-Natriuretic Peptide Total Protein 8.6 H Albumin 3.5 Lipase Procalcitonin Adenovirus (PCR) B. pertussis DNA (PCR) B.parapertussis DNA PCR C. pneumoniae DNA (PCR) Coronavirus OC43 (PCR) Coronavirus HKU1 (PCR) Coronavirus 229E (PCR) SARS-CoV-2 (PCR) Coronavirus NL63 (PCR) Human Metapneumovir PCR Influenza Type A (PCR) Influenza Type B (PCR) M. pneumoniae (PCR) Parainfluenza 1 (PCR) Parainfluenza 2 (PCR) Parainfluenza 3 (PCR) Parainfluenza 4 (PCR) RSV (RT-PCR) RSV (PCR) Entero/Rhino (PCR) 04/07/22 04/07/22 04/07/22 03:37 03:37 03:37 WBC RBC Hgb Hct MCV MCH MCHC RDW Std Deviation RDW Coeff of [place] Plt Count MPV Immature Gran % (Auto) Neut % (Auto) Lymph % (Auto) [place] % (Auto) Eos % (Auto) Baso % (Auto) Neut # (Auto) Lymph # (Auto) [place] # (Auto) Eos # (Auto) Baso # (Auto) Immature Gran # (Auto) ESR PT 11.4 INR 1.1 VBG pH 7.48 H VBG pCO2 39 VBG pO2 26 VBG HCO3 29 VBG O2 Saturation < 60.0 VBG Base Excess 5.2 Sodium Potassium Chloride Carbon Dioxide Anion Gap BUN Creatinine Est Cr Clr Drug Dosing Est GFR ( Amer) Est GFR (Non-Af Amer) BUN/Creatinine Ratio Glucose Lactate Calcium Magnesium Total Bilirubin Direct Bilirubin AST ALT Alkaline Phosphatase Troponin I High Sens B-Natriuretic Peptide Total Protein Albumin Lipase Procalcitonin 0.15 Adenovirus (PCR) B. pertussis DNA (PCR) B.parapertussis DNA PCR C. pneumoniae DNA (PCR) Coronavirus OC43 (PCR) Coronavirus HKU1 (PCR) Coronavirus 229E (PCR) SARS-CoV-2 (PCR) Coronavirus NL63 (PCR) Human Metapneumovir PCR Influenza Type A (PCR) Influenza Type B (PCR) M. pneumoniae (PCR) Parainfluenza 1 (PCR) Parainfluenza 2 (PCR) Parainfluenza 3 (PCR) Parainfluenza 4 (PCR) RSV (RT-PCR) RSV (PCR) Entero/Rhino (PCR) 04/07/22 04/07/22 04/07/22 04:06 09:49 09:49 WBC RBC Hgb Hct MCV MCH MCHC RDW Std Deviation RDW Coeff of [place] Plt Count MPV Immature Gran % (Auto) Neut % (Auto) Lymph % (Auto) [place] % (Auto) Eos % (Auto) Baso % (Auto) Neut # (Auto) Lymph # (Auto) [place] # (Auto) Eos # (Auto) Baso # (Auto) Immature Gran # (Auto) ESR 89 H PT INR VBG pH VBG pCO2 VBG pO2 VBG HCO3 VBG O2 Saturation VBG Base Excess Sodium Potassium Chloride Carbon Dioxide Anion Gap BUN Creatinine Est Cr Clr Drug Dosing Est GFR ( Amer) Est GFR (Non-Af Amer) BUN/Creatinine Ratio Glucose Lactate Calcium Magnesium Total Bilirubin Direct Bilirubin AST ALT Alkaline Phosphatase Troponin I High Sens B-Natriuretic Peptide 127 H Total Protein Albumin Lipase Procalcitonin Adenovirus (PCR) B. pertussis DNA (PCR) B.parapertussis DNA PCR C. pneumoniae DNA (PCR) Coronavirus OC43 (PCR) Coronavirus HKU1 (PCR) Coronavirus 229E (PCR) SARS-CoV-2 (PCR) NEGATIVE Coronavirus NL63 (PCR) Human Metapneumovir PCR Influenza Type A (PCR) Negative Influenza Type B (PCR) Negative M. pneumoniae (PCR) Parainfluenza 1 (PCR) Parainfluenza 2 (PCR) Parainfluenza 3 (PCR) Parainfluenza 4 (PCR) RSV (RT-PCR) Negative RSV (PCR) Entero/Rhino (PCR) 04/07/22 04/07/22 09:49 10:08 WBC RBC Hgb Hct MCV MCH MCHC RDW Std Deviation RDW Coeff of [place] Plt Count MPV Immature Gran % (Auto) Neut % (Auto) Lymph % (Auto) [place] % (Auto) Eos % (Auto) Baso % (Auto) Neut # (Auto) Lymph # (Auto) [place] # (Auto) Eos # (Auto) Baso # (Auto) Immature Gran # (Auto) ESR PT INR VBG pH VBG pCO2 VBG pO2 VBG HCO3 VBG O2 Saturation VBG Base Excess Sodium Potassium Chloride Carbon Dioxide Anion Gap BUN Creatinine Est Cr Clr Drug Dosing Est GFR ( Amer) Est GFR (Non-Af Amer) BUN/Creatinine Ratio Glucose Lactate Calcium Magnesium Total Bilirubin Direct Bilirubin AST ALT Alkaline Phosphatase Troponin I High Sens B-Natriuretic Peptide Total Protein Albumin Lipase 19 Procalcitonin Adenovirus (PCR) Not Detected B. pertussis DNA (PCR) Not Detected B.parapertussis DNA PCR Not Detected C. pneumoniae DNA (PCR) Not Detected Coronavirus OC43 (PCR) Not Detected Coronavirus HKU1 (PCR) Not Detected Coronavirus 229E (PCR) Not Detected SARS-CoV-2 (PCR) Not Detected Coronavirus NL63 (PCR) Not Detected Human Metapneumovir PCR Not Detected Influenza Type A (PCR) Not Detected Influenza Type B (PCR) Not Detected M. pneumoniae (PCR) Not Detected Parainfluenza 1 (PCR) Not Detected Parainfluenza 2 (PCR) Not Detected Parainfluenza 3 (PCR) Not Detected Parainfluenza 4 (PCR) Not Detected RSV (RT-PCR) RSV (PCR) Not Detected Entero/Rhino (PCR) Not Detected Diagnostic Findings Chest X-Ray 04/07/22 03:19 XR chest 1V portable HISTORY: 71 years-old Female Sepsis acute chest pain with sepsis COMPARISON: CTA chest of same day TECHNIQUE: AP view of the chest FINDINGS: Cardiac silhouette is enlarged. Atherosclerosis of the aorta. An esophageal stent is in place. There are 2 surgical catheter is noted projected over the medial right lung base along with adjacent skin clarissa. No pneumothorax. Pulmonary vascular congestion. Small pleural effusions with mild bibasilar consolidation. Degenerative changes of the shoulders and spine. IMPRESSION: 1. Cardiomegaly with pulmonary vascular congestion. 2. Trace pleural effusions with mild bibasilar densities favoring atelectasis. 3. Esophageal stent in place with right lung base surgical drainage catheters. ACT 112: Negative or not required by law. The above report was generated using voice recognition software. It may contain grammatical, syntax or spelling errors. Electronically signed by: Phu Rocha M.D. 04/07/2022 6:49 AM Chest CTA 04/07/22 03:22 CT angio chest PE protocol CT DOSE: 216.54 mGy.cm HISTORY: 71 years-old Female with PE. Acute chest pain with shortness of breath TECHNIQUE: Multiple CTA images of the chest were obtained after the intravenous administration of 110 ml Optiray. Coronal and sagittal MIPS were obtained from the axial data set and were submitted for review. All measurements were obtained according to NASCET criteria. A dose lowering technique was utilized adhering to the principles of ALARA. COMPARISON: CTA chest 03/29/2022 FINDINGS: CTA: Cardiomegaly with small pericardial effusion. Moderate coronary artery calcifications. No thoracic aortic aneurysm or dissection. Unremarkable thoracic aorta. No pulmonary emboli identified. CT CHEST: Unchanged positioning of the esophageal stent with adjacent surgical clips. Circumferential esophageal wall thickening with adjacent inflammatory stranding redemonstrated. The stent is debris and fluid-filled. Small pleural effusions with dependent bibasilar consolidation.There are 2 surgical drains present posterior to the gastroesophageal junction from a right flank approach. No organized/drainable fluid collection is identified at this site. Mild intralobular septal thickening. No pneumothorax. Findings are similar to the prior study. The central airways are patent. Residual enteric contrast within the large bowel. No acute fracture identified. Unchanged mid thoracic compression deformities. IMPRESSION: 1. No pulmonary emboli identified. 2. Cardiomegaly with mild pulmonary edema, small pleural effusions and dependent bibasilar consolidation suggestive of atelectasis . 3. Unchanged positioning of the esophageal stent with stable appearance of the esophageal wall thickening. 4. There are 2 surgical drains present posterior to the gastroesophageal junction from a right flank approach. No organized/drainable fluid collection is identified at this site. 5. No pneumothorax. ACT 112: Negative or not required by law. The above report was generated using voice recognition software. It may contain grammatical, syntax or spelling errors. Electronically signed by: Phu Rocha M.D. 04/07/2022 7:37 AM Barium Swallow (performed as outpatient on 04/06/22) - IMPRESSION: 1. No contrast extravasation. Esophageal stent unchanged in position. 2. Luminal narrowing of the mid to distal esophagus, likely due to wall thickening/mucosal edema, as shown on chest CT. 3. Small bilateral pleural effusions. Surgical drains in place. EKG - my reading - sinus tach, previous anterior T wave changes now resolved with upright T's; no elevation seen Code Status & VTE Plan Code Status full code VTE Prophylaxis Plan VTE Prophylaxis will be ordered: Yes Critical Care Time Prolonged Care Time Prolonged Care Time: Yes Total Prolonged Care Time: 180 PG Care Time/CCT Total # of Minutes Spent Total Time Spent with Patient: Total time spent is greater than 50% in coordination of care (as documented) at patient's floor/unit and/or counseling patient: Prolonged Care Time Prolonged Care Time: Yes Total Prolonged Care Time: 180 Coding Level of Care Code 54818 INT INP/OBS CARE 3/75MIN (25 - SIGNIFICANT, SEPARATELY IDENTIFIABLE ) Diagnoses Pleuritic chest pain R07.81 Sepsis A41.9 Acute pericarditis I30.9 Mediastinitis J98.51 Esophageal rupture K22.3 Hyponatremia E87.1 Pericardial effusion I31.39 Hypothyroidism E03.9 Hypertension I10 Jejunostomy tube present Z93.4 Elevated troponin R77.8 DVT prophylaxis Z29.9 Additional Codes Prolonged Care Time - Prolonged Care Time: Yes ([id number]) Time Spent (min) 180
[2022-04-07 11:44] LABS: Adenovirus PCR Not Detected (NotDetected); Bordetella parapertussis PCR Not Detected (NotDetected); Bordetella pertussis PCR Not Detected (NotDetected); Chlamydia pneumoniae PCR Not Detected (NotDetected); Coronavirus 229E PCR Not Detected (NotDetected); Coronavirus CoV-2 (COVID19)PCR Not Detected (NotDetected); Coronavirus HKU1 PCR Not Detected (NotDetected); Coronavirus NL63 PCR Not Detected (NotDetected); Coronavirus OC43PCR Not Detected (NotDetected); Human Metapneumovirus PCR Not Detected (NotDetected); Influenza A PCR Not Detected (NotDetected); Influenza B PCR Not Detected (NotDetected); Mycoplasma pneumoniae PCR Not Detected (NotDetected); Parainfluenza Virus 1 PCR Not Detected (NotDetected); Parainfluenza Virus 2 PCR Not Detected (NotDetected); Parainfluenza Virus 3 PCR Not Detected (NotDetected); Parainfluenza Virus 4 PCR Not Detected (NotDetected); Respiratory Syncytial VirusPCR Not Detected (NotDetected); Rhinovirus/Enterovirus PCR Not Detected (NotDetected)
[2022-04-07] MEDS ORDERED: HYDROmorphone INJ 0.5 MG/0.5 ML SYR IV PRN (12:01)
[2022-04-07] MEDS ORDERED: ONDANSETRON INJ 2 MG/ML 2 ML VIAL IV PRN (12:01)
--- NOTE | 2022-04-07 12:27 | Cardiology Consultation ---
Date of Consultation April 07, 2022 History of Present Illness Reason for Consultation: Chest pain possible pericarditis Attending Physician: Carlos A Herr History of Present Illness Patient is a 71-year-old female with a history of esophageal rupture status postrepair and esophageal stent February 2022 at [facility]. She had a feeding tube placed and has 2 JOHANA drains. She has an appointment at [facility], [place] on Saturday to have the stent removed. She had been rehabbing at [facility]. She was brought to the emergency room with chest and upper back pain. She was found to be tachycardic and febrile. She was evaluated in the emergency room with a CT scan which demonstrated no evidence of PE. There were small effusions. The drains were in place. There was a stricture/area of focal narrowing at the esophagus proximal to the esophageal stent and the esophageal stent was fluid-filled. The patient denies any dysphagia and has been taking oral intake. The patient describes more sudden onset of discomfort it is definitely worse lying flat and better standing. It also radiates to her scapula bilaterally. It is also causing her to splint as she describes some shortness of breath because she cannot take a deep breath. Looking at her she is splinting but she does not appear dyspneic and is not panting. She is unaware of any palpitations or fluttering. She denies any lightheadedness or dizziness. She denies any recent viral illnesses or upper respiratory tract infections. Her bio HCDC assay is negative for any viral illnesses. She has had on and off fevers and chills at [facility]. Some of this she thought was related to the room being hot. She is only been eating by mouth puddings and mashed potatoes. She denies any symptoms of aspiration. She has no lower extremity edema or abdominal distention. Her was at the bedside and was able to assist her with the history. The rest of a complete her systems is negative Allergies Allergy/AdvReac Type Severity Reaction Status Date / Time Latex, Natural Rubber Allergy Unknown Unknown Verified 03/28/22 01:01 Home Medications Medication Instructions Recorded Confirmed Type levothyroxine 75 mcg capsule 75 mcg DAILYBB 06/29/21 04/07/22 History acetaminophen 325 mg/10.15 mL oral 975 mg feeding tube Q8H 3250 MG/24 03/28/22 04/07/22 History solution HOURS bisacodyl 10 mg rectal suppository 10 mg TN DAILY PRN Constipation 03/28/22 04/07/22 History docusate sodium 50 mg/5 mL oral 100 mg feeding tube BID 03/28/22 04/07/22 History liquid enoxaparin 40 mg/0.4 mL 40 mg subcut DAILY 03/28/22 04/07/22 History subcutaneous syringe (Lovenox) famotidine 20 mg tablet 20 mg feeding tube BID 03/28/22 04/07/22 History fluconazole 100 mg tablet 400 mg feeding tube DAILY 03/28/22 04/07/22 History lidocaine 5 % topical patch 1 patch topical DAILY 03/28/22 04/07/22 History loratadine 10 mg tablet (Claritin) 10 mg feeding tube HS 03/28/22 04/07/22 History magnesium hydroxide 400 mg/5 mL 30 ml feeding tube DAILY PRN 03/28/22 04/07/22 History oral suspension (Milk of Magnesia) Constipation metoprolol tartrate 25 mg tablet 25 mg feeding tube BID 03/28/22 04/07/22 History naloxone 4 mg/actuation nasal spray 4 mg intranasal ONCE PRN Opioid 03/28/22 04/07/22 History Overdose ondansetron HCl 4 mg tablet 8 mg feeding tube Q6H PRN 03/28/22 04/07/22 History NAUSEA/VOMITING phenol-phenolate sodium mucosal 1 spray PO Q2H PRN SCRATCHY THROAT 03/28/22 04/07/22 History aerosol spray polyethylene glycol 3350 17 17 g feeding tube QDL PRN 03/28/22 04/07/22 History gram/dose oral powder (Miralax) Constipation prochlorperazine maleate 5 mg 5 mg feeding tube Q8H PRN 03/28/22 04/07/22 History tablet (Compazine) NAUSEA/VOMITING sennosides 8.6 mg tablet (senna) 17.2 mg feeding tube HS 03/28/22 04/07/22 History sennosides 8.6 mg-docusate sodium 1 tab-cap QDL PRN Constipation 03/28/22 04/07/22 History 50 mg tablet (Senokot-S) tramadol 50 mg tablet 50 mg feeding tube Q6H PRN Pain 03/28/22 04/07/22 History (Scale Score 7-10) Patient History Medical History Esophageal rupture High cholesterol Hypertension Hyponatremia Hypothyroidism Jejunostomy tube present Right knee DJD Stomach ulcer Surgical History H/O arthroscopy of right knee H/O: hysterectomy History of bunionectomy History of esophageal surgery 2nd esophageal rupture; 03/10/22 - [facility] - Dr Carlos A Grajeda Family History Mother Stroke Father Coronary heart disease Social History Smoking Status: Never smoker Hx Alcohol Use: No Hx Substance Use: No Preferred Language: Hebrew Communication Ability: Effective 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 Required: No Beliefs That Will Affect Care: None marital status: Current Living Situation: Rehab current occupational status: retired 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; [employer]; 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 How many Children do You have: 2 Feels Safe at Home: Yes Physical Activity Frequency Comment: ACTIVE Assistive Devices: Denture - Lower, Glasses, Walker and Wheelchair Results & Data ([facility]) Vital Signs (Past 12 Hours) Vital Signs Temp Pulse Pulse Resp BP BP Pulse Ox 04/07/22 09:03 125 H 24 139/76 99 04/07/22 08:30 123 H 20 139/76 98 04/07/22 08:00 122 H 22 157/85 H 99 04/07/22 08:02 125 H 04/07/22 07:30 115 H 23 151/73 H 100 04/07/22 07:00 118 H 24 157/86 H 99 04/07/22 06:30 120 H 29 H 99 04/07/22 06:30 152/80 H 04/07/22 06:00 127 H 26 H 98 04/07/22 06:00 156/73 H 04/07/22 05:30 128 H 26 H 98 04/07/22 05:30 150/75 H 04/07/22 05:00 123 H 29 H 99 04/07/22 05:00 164/77 H 04/07/22 04:30 135 H 23 94 04/07/22 04:30 146/69 H 04/07/22 04:15 131 H 24 93 04/07/22 04:08 173/87 H 04/07/22 04:08 127 H 24 92 04/07/22 04:00 125 H 28 H 04/07/22 03:45 135 H 28 H 04/07/22 03:30 144 H 30 H 94 04/07/22 03:28 140 H 28 H 95 04/07/22 04:49 88 L 04/07/22 04:07 127 H 16 173/87 H 96 04/07/22 03:27 38.5 C H 141 H 20 147/114 H 96 04/07/22 03:26 96 O2 Del Method O2 Flow Rate 04/07/22 09:03 Nasal Cannula 2 04/07/22 08:30 Nasal Cannula 2 04/07/22 08:00 Nasal Cannula 2 04/07/22 08:02 04/07/22 07:30 Nasal Cannula 04/07/22 07:00 Room Air 04/07/22 06:30 04/07/22 06:30 04/07/22 06:00 04/07/22 06:00 04/07/22 05:30 04/07/22 05:30 04/07/22 05:00 04/07/22 05:00 04/07/22 04:30 04/07/22 04:30 04/07/22 04:15 04/07/22 04:08 04/07/22 04:08 04/07/22 04:00 04/07/22 03:45 04/07/22 03:30 04/07/22 03:28 04/07/22 04:49 Room Air 04/07/22 04:07 Room Air 04/07/22 03:27 Room Air 04/07/22 03:26 Room Air she is awake alert and oriented x3 she describes her pain as 8 out of 10 she looks uncomfortable. HEENT 2+ carotid upstrokes no evidence of carotid bruits Lungs: Clear to auscultation bilaterally with decreased breath sounds in the bases Heart regular rate and rhythm (tachycardic) there is a holosystolic murmur at the apex I cannot exclude a pericardial rub Abdomen: Soft nontender distended positive bowel sounds Extremities: No clubbing cyanosis or edema Psychiatric: Her affect appeared appropriate Her inpatient studies were reviewed including her EKG CAT scan and laboratory studies. IMPRESSIONS: 1. Chest discomfort probably a combination of mediastinitis along with pericarditis. 2. Normal biventricular size and function with a trace to small pericardial effusion without evidence of tamponade physiology 3. No evidence of acute coronary syndrome, aortic dissection, or pulmonary embolism 4. Status post esophageal rupture, repair and esophageal stenting at [facility] in [place] As was discussed with the patient and Dr. Lopez, I believe she does have some degree of pericarditis but I think this is purely that her heart is the innocent bystander and here and what ever is going on in her chest is causing inflammation and irritation of her pericardium. She did have significant improvement in her pain with Toradol even after receiving narcotics all night with no improvement. There is nothing to suggest tamponade physiology. I would recommend colchicine 0.6 mg twice daily which can be given through her G-tube. I would also give her IV Toradol as needed to help with her pain improvement. In discussion we are in agreement in trying to avoid NSAIDs given the concern of GI bleeding and additional GI irritation associated with NSAIDs. If pain is refractory to colchicine then we could use NSAIDs in combination with proton pump inhibitors. She is already on beta-blockers and is currently in sinus rhythm (sinus tachycardia) and I would consider increasing her beta-blockers to slow her heart rate down and improve her diastolic filling. As well as improve her blood pressure. Management of her intrathoracic issues are currently at the recommendation of pulmonary medicine as well as the primary service. As has been documented unfortunately we do not have a thoracic surgeon nor gastroenterology nor infectious disease that is able to assist in her management here at [facility]. Assuming she remains hemodynamically stable I would probably repeat her echocardiogram in 2 or 3 days just to make sure the effusion is not increasing in size.
--- NOTE | 2022-04-07 12:38 | Pharmacy Report ---
Pharmacy PK ABX Note - Date of Service April 07, 2022 - Assessment and Plan Assessment 71 year old F receiving Vancomcyin, Zosyn and Fluconazole for empiric (48 hr stop) treatment of sepsis. * Presents with pleuritic chest pain. Suspected pericarditis and mediastinitis. * Febrile at 38.5oC. Leukocytosis of 15.8k. Renal fxn at baseline. Lactate and procal negative. * Blood cultures and MRSA nasal swab pending. Plan Vancomycin * Loading dose: 1250 mg IV x 1 * Maintenance dose: 1000 mg IV every 12 hours * Regimen is predicted to achieve target AUC/MARI of 400-600 mg/L.hr * No level will be ordered unless therapy is to extend beyond 48 hours Zosyn * 3.375 g IV every 8 hours Fluconazole * 400 mg IV daily Pharmacy will continue to follow and will adjust dose/frequency as necessary. Thank you. Pharmacy has transitioned to AUC monitoring for vancomycin. AUC/MARI is the preferred PK/PD target and is associated with decreased risk of nephrotoxicity compared to traditional trough targets.
[2022-04-07] MEDS: METOPROLOL TARTRATE 25 MG TAB OG SCH ×2 (13:17→20:22)
[2022-04-07] MEDS: PANTOprazole 40 MG in SYRINGE 0 ML IV SCH ×2 (13:17→20:22)
[2022-04-07] MEDS: LIDOCAINE 5% 1 PATCH TD SCH (13:17)
[2022-04-07] MEDS: LEVOTHYROXINE SODIUM 75 MCG TABLET GT SCH (13:18)
[2022-04-07] MEDS: PIPERACILLIN/TAZOBACTAM 3.375 GM in DEXTROSE 5% 100 ML IV SCH ×2 (13:18→23:07)
[2022-04-07] MEDS: ACETAMINOPHEN 325 MG TAB PEG PRN ×2 (13:18→19:39)
[2022-04-07] MEDS: FLUCONAZOLE 200 MG/100 ML BAG IV SCH ×2 (13:21→14:35)
[2022-04-07 16:55] LABS: C Reactive Protein 11.01 mg/dl (0-0.5)
[2022-04-07 17:09] LABS: Troponin I High Sensitivity 19.2 pg/ml (0-14)
[2022-04-07] MEDS: VANCOMYCIN HCL 1,000 MG in SODIUM CHLORIDE 0.9% 250 ML IV SCH (17:32)
[2022-04-07 18:39] LABS: Appearance Urine Clear (Clear); Bacteria Urine Automated Negative (Negative); Bilirubin Urine Negative (Negative); Blood Urine Negative (Negative); Color Urine Yellow; Epithelial Cell Urine Auto >30 /lpf (0-5); Glucose Urine UA Negative (Negative); Ketones Urine Trace (Negative); Leukocyte Esterase Urine Negative (Negative); Nitrite Urine Negative (Negative); Protein Urine 1+ (Negative); RBC Urine Automated 0-4 /hpf (0-4); Specific Gravity Urine > 1.045 (1.000-1.030); Urobilinogen Urine Negative (Negative)
[2022-04-07 18:49] LABS: Calcium Oxalate Crystals Urine Present (None Prsent)
[2022-04-07] MEDS: KETOROLAC TROMETHAMINE 15 MG/ML VIAL IV PRN (19:41)
[2022-04-07] MEDS: COLLAGENASE OINT 30 GM TUBE EXT SCH (19:43)
[2022-04-07] MEDS: COLCHICINE 0.6 MG TAB PO SCH (20:22)
[2022-04-07] MEDS ORDERED: SENNA 8.6 MG TAB PO SCH (21:00)
[2022-04-07] MEDS ORDERED: MELATONIN 3 MG TAB PO SCH (21:00)
[2022-04-07] MEDS ORDERED: LORATADINE 10 MG TAB JT SCH (21:00)
[2022-04-08] MEDS: VANCOMYCIN HCL 1,000 MG in SODIUM CHLORIDE 0.9% 250 ML IV SCH ×2 (03:00→16:00)
[2022-04-08] MEDS: LEVOTHYROXINE SODIUM 75 MCG TABLET GT SCH (05:42)
[2022-04-08] MEDS: KETOROLAC TROMETHAMINE 15 MG/ML VIAL IV PRN ×2 (05:43→19:29)
[2022-04-08] MEDS: PIPERACILLIN/TAZOBACTAM 3.375 GM in DEXTROSE 5% 100 ML IV SCH ×2 (05:43→13:30)
[2022-04-08 06:50] LABS: Basophils # (auto) 0.05 K/uL (0-0.2); Basophils % (auto) 0.4 %; Eosinophils # (auto) 0.05 K/uL (0-0.50); Eosinophils % (auto) 0.4 %; Hemoglobin 9.1 g/dl (12.0-16.0); Immature Granulocytes # (auto) 0.58 K/uL (0.01-0.20); Immature Granulocytes % (auto) 4.6 %; Lymphocytes # (auto) 0.82 K/uL (1.2-3.4); Lymphocytes % (auto) 6.4 %; Mean Corpuscular Hemoglobin 27.3 pg (25.0-34.0); Mean Corpuscular Hgb Conc 32.5 g/dL (32.0-36.0); Mean Corpuscular Volume 84.1 fL (80.0-100.0); Monocytes % (auto) 8.6 %; Neutrophils # (auto) 10.14 K/uL (1.40-6.50); Neutrophils % (auto) 79.6 %; Platelet Count 470 K/uL (130-400); RDW Coefficient of Variation 16.1 % (11.5-14.5); Red Blood Count 3.33 M/uL (4.20-5.40); White Blood Count 12.74 K/ul (4.8-10.8)
[2022-04-08 07:01] LABS: BUN Creatinine Ratio 21.4 (10-20); C Reactive Protein 28.21 mg/dl (0-0.5); Calcium 8.6 mg/dl (8.5-10.1); Creatinine Clr Calc Pharmacy 84.3 ml/min; Est GFR (Non-African American) 93.2 ml/min; Phosphorus 3.2 mg/dl (2.5-4.9); Potassium 3.7 mmol/L (3.5-5.1)
[2022-04-08] MEDS: ACETAMINOPHEN 325 MG TAB PEG PRN ×2 (08:06→16:53)
[2022-04-08] MEDS: METOPROLOL TARTRATE 25 MG TAB OG SCH (08:26)
[2022-04-08] MEDS: COLCHICINE 0.6 MG TAB PO SCH (08:26)
[2022-04-08] MEDS: LIDOCAINE 5% 1 PATCH TD SCH (08:26)
[2022-04-08] MEDS: COLLAGENASE OINT 30 GM TUBE EXT SCH (08:27)
[2022-04-08] MEDS: PANTOprazole 40 MG in SYRINGE 0 ML IV SCH (08:27)
--- NOTE | 2022-04-08 08:53 | Pulmonology Progress Note ---
Date of Service April 08, 2022 Assessment & Plan (1) Sepsis: (2) Anemia: (3) Hyponatremia: (4) Mediastinitis: (5) Back pain: Plan Impression: 71-year-old female with history of esophageal perforation status postsurgical repair with esophageal stenting and JOHANA drains in place presenting now with fever, tachycardia, and upper back pain. Her esophagram yesterday demonstrated no extravasation but did show an area of focal narrowing in the proximal aspect of the esophagus just outside the stent. Her JOHANA drains do have some purulent appearing drainage. Recommendations: 1. Chest discomfort: Unclear how much is related to the JOHANA drains, possible pericarditis, and esophageal stent. Pain is better but not resolved. On colchicine per cardiology. Remains tachycardic. 2. Potential mediastinitis: Currently on Zosyn, vancomycin and caspofungin. Recommend ID consultation 3. Would recommend repeating Gastrografin swallow. We will repeat chest x-ray now given her decrease in hemoglobin and hematocrit 4. Analgesia per primary service. 5. Decreased hemoglobin. No evidence of ongoing bleeding but will repeat chest x-ray today. No indication for transfusion currently Would have low threshold for having the patient evaluated at a tertiary center as we do not have thoracic surgery, ID, or GI capable of intervening on the patient's issues at this facility Admission and Anticipated Discharge Date Admission Date: April 07, 2022 Subjective Patient seen and examined. EMR reviewed. Patient reports that she is experiencing increasing sleepiness. Her pain is somewhat better but not resolved. She has had fevers and chills overnight. She is not coughing or expectorating phlegm. Her drain output has been minimal. Review of Systems Review of Systems: All systems reviewed & are unremarkable except as noted in Subjective Physical Exam Constitutional: well nourished; not in distress Neck: trachea midline, no thyromegaly Respiratory: normal respiratory effort, lungs clear to auscultation Cardiovascular: RRR, no murmur, no edema Musculoskeletal: Extremities: extremities normal to inspection Skin: no rashes, warm and dry Lymphatic: no cervical lymphadenopathy Results & Data Results & Data ([facility]) Vital Signs (Past 12 Hours) Vital Signs Temp Pulse Pulse Resp BP Pulse Ox O2 Del Method 04/08/22 07:00 122 H 04/08/22 06:51 37.8 C H 127 H 18 166/82 H 92 Room Air 04/08/22 03:03 37.2 C 105 H 20 150/79 H 94 Room Air 04/07/22 23:36 89 04/07/22 22:29 36.8 C 89 18 129/72 95 Room Air Laboratory Results 04/08/22 05:31 04/08/22 05:31 Culture from JOHANA drains is pending. Many white blood cells but no organisms. Diagnostic Findings No new imaging PG Care Time/CCT Total # of Minutes Spent Total Time Spent with Patient: Total time spent is greater than 50% in coordination of care (as documented) at patient's floor/unit and/or counseling patient: Coding Level of Care Code 07862 SUB INP/OBS CARE 2/35MIN Diagnoses Sepsis A41.9 Anemia D64.9 Hyponatremia E87.1 Mediastinitis J98.51 Back pain M54.9
[2022-04-08] MEDS ORDERED: ENOXAPARIN INJ 40 MG/0.4 ML SYR SQ SCH (09:00)
[2022-04-08] MEDS ORDERED: CASPOFUNGIN 70 MG in SODIUM CHLORIDE 0.9% 250 ML IV ONE (09:00)
[2022-04-08] MEDS ORDERED: FLUCONAZOLE 200 MG/100 ML BAG IV SCH (09:00)
--- NOTE | 2022-04-08 09:39 | XRay Report ---
SINGLE VIEW CHEST CLINICAL HISTORY: Atypical chest pain FINDINGS: An AP, portable, upright chest radiograph is chest x-ray and chest CT to study dated 023. An esophageal stent is unchanged in position. A pleural drain is again seen in the right lung ba se. The heart is enlarged. There is pulmonary vascular congestion. There are small pleural effusions with dependent consolidation. No pneumothorax is seen. The skeletal structures are osteopenic. The jose g ny thorax is grossly intact. Skin clips project over the right upper quadrant. IMPRESSION: 1. Cardiomegaly with pulmonary vascular congestion. 2. A pleural drain is again seen at the right lung base. 3. Small pleural effusions with dependent consolidation. This is similar to yesterday. ACT 112: Negative or not required by law. Electronically signed by: Nate Pedersen M.D. 04/08/2022 9:38 AM
--- NOTE | 2022-04-08 13:25 | Discharge Summary ---
Date of Service date of admission - April 07, 2022 date of discharge - April 08, 2022 Admission HPI Per Admitting Provider 71yo female with complicated recent medical history including esophageal rupture discovered at [facility] on 03/09/22. Apparently she had had a severe GI illness with severe vomiting & retching which was thought to be the cause of the esophageal rupture. She was emergently transferred to [facility] in [place]. On 03/10/22 she underwent esophageal rupture repair. A distal esophageal stent was placed during her procedure as well. The surgeon involved in her care was Dr Carlos A Grajeda. I do not have records from [facility], but per the 's recollection her stay was complicated by pleural effusion (?) requiring chest tube placement. She stayed at [facility] for ~10 days. She ultimately was transferred to [facility] for acute rehab where she has been since her hospital discharge. Patient reports that while at [facility] a J-tube was placed for enteral feedings. She was receiving such upon discharge to [facility] and was on the feedings until ~2 days ago. She's had no issues with the J-tube. In addition, she was discharged from [facility] with 2 JOHANA drains that track to the esophageal stent region. The patient reports she had a "good day" yesterday and participated in rehab activities. Over the last 48 hours she has had soft foods (mashed potatoes, etc) and was tolerating such without dysphagia or odynophagia. Denies any recent central chest pain. She has had a small amount of dyspnea on exertion with PT/OT but nothing severe. This am ~0130 she was awoken from sleep with severe, pleuritic central chest pain radiating to her shoulders. The pain has been continuous since that time. SL nitro x 2 provided NO relief of pain. She received an additional 8mg of morphine IV since ER arrival without any change in her pain. She has had mild dyspnea associated with the pain. The pain seems to be worse with laying down in bed. In fact, she had to use the toilet in the ER and was comfortable until walking back to the stretcher and laying down again. This precipitated severe pain again in the substernal region. Denies that at any time the pain radiating into either arm. Denies cough. Denies recent fevers. She has had off/on cold chills over the last few weeks but no fever to her knowledge. Upon ER presentation today she had temp of 38.5 C along with tachycardia. She just underwent a barium swallow evaluation yesterday and this was NEGATIVE for any esophageal extravasation of contrast. Shortly after my visit with her I called and spoke with the on-call thoracic surgeon Dr Sage Bonner. We reviewed her presenting complaints today, her labs, her CTA chest findings, etc. At the time of this first call it was felt that she did not require acute transfer to [place]. The esophageal & stent fluid/debris seen on CT was apparently within normal limits following this surgery. STAT echo was performed showing trace-small pericardial effusion with no tamponade features. EF was preserved. I received permission to give NSAIDs to Ms Dean from Dr Bonner at [facility]. Toradol 15mg IV x 1 was given and about 20-25 minutes later she reported her pain was finally improved. Principal Diagnosis 1. Suspected Mediastinitis 2. Pericarditis likely 2nd to #1 3. Sepsis 2nd to #1 4. h/o Esophageal rupture with repair & esophageal stent placement - 03/10/22 - [facility] 5. Hyponatremia 6. Jejunostomy tube status 7. HTN 8. Hypothyroidism 9. Elevated troponin - 2nd to myocardial demand ischemia 10. 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 Wound - dorsal aspect of distal left arm 12. Anemia 13. Thrombocytosis - likely reactive to #1, #2 Discharge Exam gen - looks better today, much more comfortable; NAD neck - no JVD mouth - MMM heart - tachy, s1 s2, 1/6 ISIDRA LSB; rub not heard today lungs - airation improved today; no rales; CTA b/l abd - soft, NT, ND, BS+, J-tube present left side of abdomen ext - no edema, pulses 2+ b/l skin - drains x 2 entering the skin near the RUQ of abdomen/lower costal margin; JOHANA bulbs x 2 with 1 bottle containing purulent liquid psych - awake, alert, oriented Discharge Data Allergies Allergy/AdvReac Type Severity Reaction Status Date / Time Latex, Natural Rubber Allergy Unknown Unknown Verified 03/28/22 01:01 Consultations [facility] Cardiology - Dr Tray Cheema [facility] Pulmonology - Dr Gavin Cohen Procedures Performed Echocardiogram: * normal LV wall thickness * EF 60-65% * LV wall motion normal * RV normal in size & function * RV opens completely at end diastole * RV systolic pressure normal * No obvious dissection could be visualized * Trace to small pericardial effusion which is slightly bigger around the right atrial wall. ~25% respiratory variation across the tricuspid inflow. * No respiratory variation across the mitral inflow nor the LV outflow tract. * IVC is normal in size & collapses appropriately with respiration. Thus, no features of tamponade physiology. * Grade 1 diastolic dysfunction * Normal valve function Ordered Studies Chest X-Ray 04/07/22 03:19 XR chest 1V portable HISTORY: 71 years-old Female Sepsis acute chest pain with sepsis COMPARISON: CTA chest of same day TECHNIQUE: AP view of the chest FINDINGS: Cardiac silhouette is enlarged. Atherosclerosis of the aorta. An esophageal stent is in place. There are 2 surgical catheter is noted projected over the medial right lung base along with adjacent skin clarissa. No pneumothorax. Pulmonary vascular congestion. Small pleural effusions with mild bibasilar consolidation. Degenerative changes of the shoulders and spine. IMPRESSION: 1. Cardiomegaly with pulmonary vascular congestion. 2. Trace pleural effusions with mild bibasilar densities favoring atelectasis. 3. Esophageal stent in place with right lung base surgical drainage catheters. ACT 112: Negative or not required by law. The above report was generated using voice recognition software. It may contain grammatical, syntax or spelling errors. Electronically signed by: Phu Rocha M.D. 04/07/2022 6:49 AM Chest CTA 04/07/22 03:22 CT angio chest PE protocol CT DOSE: 216.54 mGy.cm HISTORY: 71 years-old Female with PE. Acute chest pain with shortness of breath TECHNIQUE: Multiple CTA images of the chest were obtained after the intravenous administration of 110 ml Optiray. Coronal and sagittal MIPS were obtained from the axial data set and were submitted for review. All measurements were obtained according to NASCET criteria. A dose lowering technique was utilized adhering to the principles of ALARA. COMPARISON: CTA chest 03/29/2022 FINDINGS: CTA: Cardiomegaly with small pericardial effusion. Moderate coronary artery calcifications. No thoracic aortic aneurysm or dissection. Unremarkable thoracic aorta. No pulmonary emboli identified. CT CHEST: Unchanged positioning of the esophageal stent with adjacent surgical clips. Circumferential esophageal wall thickening with adjacent inflammatory stranding redemonstrated. The stent is debris and fluid-filled. Small pleural effusions with dependent bibasilar consolidation.There are 2 surgical drains present posterior to the gastroesophageal junction from a right flank approach. No organized/drainable fluid collection is identified at this site. Mild intralobular septal thickening. No pneumothorax. Findings are similar to the prior study. The central airways are patent. Residual enteric contrast within the large bowel. No acute fracture identified. Unchanged mid thoracic compression deformities. IMPRESSION: 1. No pulmonary emboli identified. 2. Cardiomegaly with mild pulmonary edema, small pleural effusions and dependent bibasilar consolidation suggestive of atelectasis . 3. Unchanged positioning of the esophageal stent with stable appearance of the esophageal wall thickening. 4. There are 2 surgical drains present posterior to the gastroesophageal junction from a right flank approach. No organized/drainable fluid collection is identified at this site. 5. No pneumothorax. ACT 112: Negative or not required by law. The above report was generated using voice recognition software. It may contain grammatical, syntax or spelling errors. Electronically signed by: Phu Rocha M.D. 04/07/2022 7:37 AM Chest X-Ray 04/08/22 08:49 SINGLE VIEW CHEST CLINICAL HISTORY: Atypical chest pain FINDINGS: An AP, portable, upright chest radiograph is chest x-ray and chest CT to study dated 04/07/2022. An esophageal stent is unchanged in position. A pleural drain is again seen in the right lung base. The heart is enlarged. There is pulmonary vascular congestion. There are small pleural effusions with dependent consolidation. No pneumothorax is seen. The skeletal structures are osteopenic. The bony thorax is grossly intact. Skin clips project over the right upper quadrant. IMPRESSION: 1. Cardiomegaly with pulmonary vascular congestion. 2. A pleural drain is again seen at the right lung base. 3. Small pleural effusions with dependent consolidation. This is similar to yesterday. ACT 112: Negative or not required by law. Electronically signed by: Nate Pedersen M.D. 04/08/2022 9:38 AM Hospital Course (1) Pleuritic chest pain: Patient presented with acute, severe pleuritic chest pain that was positional in nature (worse with supine position) and which had no response to SL nitroglycerin or copious narcotics. IV NSAID therapy did finally relieve her pain. Constellation of symptoms, exam findings, and imaging/labs pointed towards diagnosis of acute pericarditis as well as mediastinitis as the likely culprits. No evidence of pneumonia on imaging. There were no PEs or aortic dissection on CTA chest. Her symptoms and labs were not consistent with ACS. (2) Sepsis: 2nd to #3, #4. Blood cultures were obtained and during her short stay remained negative. Broad-spectrum IV antibiotics were initiated including IV zosyn & IV vancomycin. In addition, as the patient had yeison albicans infection of the right pleural space while at [facility] in 02/2022, she was continued on anti- fungal therapy here. She initially received IV fluconazole, but later was changed to IV Caspofungin (adverse drug interaction between fluconazole and colchicine thus fluconazole was stopped). Leukocytosis improved but she continued with low-grade fevers and high CRP (28). Fortunately she remained hemodynamically stable while here. (3) Acute pericarditis: As noted above her clinical picture was suggestive of pericarditis. This may have been secondary to her suspected mediastinitis. There was no evidence of tamponade physiology based on echo results. There was a small pericardial effusion especially adjacent to the right atrium. After speaking with Dr Sage Bonner, thoracic surgery at [facility], colchicine +/- prn NSAIDS were deemed acceptable despite the recent esophageal surgery. She was maintained on IV PPI twice daily during her stay here. Dr Tray Cheema from [facility] saw the patient in consult and recommended twice daily colchicine 0.6mg BID as well as NSAIDS prn for refractory pain. Once the above medications were started the patient had significant chest pain relief. Recommend a repeat echocardiogram in 2-3 days to ensure stability of the pericardial effusion. The echocardiogram obtained here was placed on CD-ROM and sent with the patient to [place]. (4) Mediastinitis: The patient has 2 drains that enter the body in the RUQ/right lower costal margin region and traverse to near the esophageal stent. The drains contain a small amount of cloudy/purulent appearing fluid. This may suggest - especially in light of her leukocytosis, elevated inflammatory markers, symptoms, recent surgery, etc - that she has mediastinitis. She was seen in consult by Dr Gavin Cohen, [facility], who was heavily concerned that indeed she had mediastinitis. The fluid from the JOHANA drain was sent for culture and was negative prior to her transfer to [place]. Blood cultures were negative during the stay. Broad-spectrum IV antibiotics including anti-fungal coverage were started while here (zosyn, vancomycin; fluconazole, then caspofungin). NSAIDs/colchicine as in #3 above were helpful for her chest discomfort as well as her shoulder/back pain she had been having. Again we contacted Dr Sage Bonner, thoracic surgery at [facility] in [place], who graciously accepted Ms Dean in transfer for ongoing care. (5) Esophageal rupture: s/p surgical repair with esophageal stent on 03/10/22 at [facility]. Barium swallow at [facility] on 04/06/22 without evidence of esophageal leak. CTA chest 04/07/22 with findings as noted above. Was maintained on twice daily IV PPI while here. (6) Hyponatremia: Radiographically the patient had mild pulmonary edema, small effusions, etc. She may have mild diastolic CHF in the setting of the above. Her mild hyponatremia may be secondary to this. Na level was 132 at discharge. (7) Pericardial effusion: as above (8) Jejunostomy tube present: No issues at this time Used primarily for medications during her brief stay She tolerated clears by mouth while here (9) Hypothyroidism: Continue synthroid 75mcg daily. By report her TSH was mildly elevated at 7 while at [facility]. Her synthroid dose was not adjusted while here, however. Recommend simply repeating a TSH in 6 weeks for stability. (10) Hypertension: Continue metoprolol tartrate 25mg BID (11) Elevated troponin: Likely myocardial demand ischemia in the setting of #2, #3, #4 above no evidence of acute PA/ACS (12) DVT prophylaxis: Was maintained on lovenox 40mg daily (13) Wound of left upper extremity: The patient had suffered a wound to the dorsal left arm just proximal to the wrist some time ago in the preceding weeks. During her brief stay Santyl's was applied to this wound/ulcer and covered with Adaptic then secured with kerlix. Recommend wound care consultation upon transfer. Plan I would like to thank Dr Sage Bonner and the thoracic surgery team for accepting Ms Dean in transfer to [facility] for ongoing care. Total Time Total Time Spent Total Time Spent (In Minutes): 60 Discharge Plan Discharge Items Patient Disposition: Transfer Acute Care Hospital Reason For Visit: SEVERE PLEURITIC CHEST PAIN, SIRS Discharge Diagnosis: 1. Suspected Mediastinitis 2. Pericarditis likely 2nd to #1 3. Sepsis 2nd to #1 4. Hyponatremia 5. h/o Esophageal rupture with repair & esophageal stent placement - 03/10/22 - [facility] 6. Jejunostomy tube status 7. HTN 8. Hypothyroidism 9. Elevated troponin - 2nd to myocardial demand ischemia 10. 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 Wound - dorsal aspect of distal left arm 12. Anemia 13. Thrombocytosis - likely reactive to #1, #2 Activity: As commented below Activity Comment: OOB to chair/bathroom as tolerated Non-emergency contact: Primary Care Provider and Surgeon Call non-emergency contact if: you have any medication questions Follow-up/Referrals: Nalini Escobedo M.D. [Primary Care Provider] - Diet: Clear liquid Addtl Attending Provider Instructions: Ms Dean was admitted to [facility] with severe pleuritic chest pain. Pain was not relieved with copious IV narcotics nor SL nitroglycerin. Pain improved with IV NSAID therapy. CT chest, echo findings, and clinical presentation were concerning for mediastinitis with secondary acute pericardi tis. Pleuritic pain improved with colchicine twice daily & prn IV toradol. IV zosyn, IV vancomycin, and IV caspofungin were given for treatment of suspected mediastinitis. Cultures from the fluid from her JOHANA drain are pending. Blood cultures to date are negative. Anti-fungal therapy was continued due to history of yeison albicans being isolated from the right chest pleural space in 02/2022 at [facility]. Ms Dean has been accepted to [facility] in [place] by Dr Sage Bonner, thoracic surgery. Further instructions to follow after your hospitalization in [place]. Pending Studies at Discharge: Yes Studies:: blood cultures; culture from JOHANA drain Stand-Alone Forms: My [facility] Skilled Items Patient informed of condition?: Yes DNR: No Discharge Level of Care: Other Communicable Disease: No Discharge Prognosis: Stable Lines: Peripheral IV Urinary Catheter: No Medications and DC Order Prescriptions: New ketorolac 15 mg/mL Solution 15 mg IV Q6H PRN (Reason: chest pain) Qty: 1 0RF acetaminophen 325 mg Tablet 1,000 mg PEG Q4H PRN (Reason: fever or pain) Qty: 1 0RF melatonin 3 mg Tablet 3 mg PO HS Qty: 1 0RF Santyl 250 unit/gram Ointment 1 applic EXT DAILY Qty: 1 0RF Rx Instructions: apply to left distal arm wound - apply in nickel thick amount to entire wound; apply adaptic dressing; then wrap w/ kerlix dressing. Apply santyl's once daily. colchicine [Colcrys] 0.6 mg Tablet 0.6 mg PO BID Qty: 60 0RF ondansetron HCl (PF) 4 mg/2 mL Solution 4 mg IV Q6H PRN (Reason: nausea and vomiting) Qty: 1 0RF pantoprazole [Protonix] 40 mg recon soln 40 mg IV BID Qty: 10 0RF Continued sennosides [senna] 8.6 mg Tablet 17.2 mg feeding tube HS phenol-phenolate sodium Aerosol,Beaufort 1 spray PO Q2H PRN (Reason: SCRATCHY THROAT) magnesium hydroxide [Milk of Magnesia] 400 mg/5 mL Suspension 30 ml feeding tube DAILY PRN (Reason: Constipation) bisacodyl 10 mg Suppository 10 mg VT DAILY PRN (Reason: Constipation) lidocaine 5 % Adhesive Patch,Medicated 1 patch TOPICAL DAILY Rx Instructions: APPLY AT 0500, REMOVE AT 1700. loratadine [Claritin] 10 mg Tablet 10 mg feeding tube HS enoxaparin [Lovenox] 40 mg/0.4 mL Syringe 40 mg SUBCUT DAILY metoprolol tartrate 25 mg Tablet 25 mg feeding tube BID Rx Instructions: HOLD FOR SBP <100, HR <60 Changed levothyroxine 75 mcg capsule 75 mcg PO DAILYBB Qty: 1 0RF Rx Instructions: VIA J-TUBE Discontinued docusate sodium 50 mg/5 mL Liquid 100 mg feeding tube BID fluconazole 100 mg Tablet 400 mg feeding tube DAILY Rx Instructions: STARTED 03/27/22 FOR 3 DAYS. prochlorperazine maleate [Compazine] 5 mg Tablet 5 mg feeding tube Q8H PRN (Reason: NAUSEA/VOMITING) ondansetron HCl [Zofran] 4 mg Tablet 8 mg feeding tube Q6H PRN (Reason: NAUSEA/VOMITING) sennosides-docusate sodium [Senokot-S] 8.6-50 mg Tablet 1 tab-cap QDL PRN (Reason: Constipation) Rx Instructions: VIA J-TUBE tramadol 50 mg Tablet 50 mg feeding tube Q6H PRN (Reason: Pain (Scale Score 7-10)) famotidine 20 mg Tablet 20 mg feeding tube BID polyethylene glycol 3350 [Miralax] 17 gram/dose Powder 17 g feeding tube QDL PRN (Reason: Constipation) Rx Instructions: MIX WITH 6-8 OZ FLUID acetaminophen 325 mg/10.15 mL Solution 975 mg feeding tube Q8H naloxone 4 mg/actuation Beaufort,Non-Aerosol 4 mg INTRANASAL ONCE PRN (Reason: Opioid Overdose) Discharge Orders: Discharge Order (Routine); Ordered 04/08/22 Ordered By: Carlos A Herr Admission Data Admit Date/Time: 04/07/22 10:19 Attending Provider: Carlos A Herr Admit Provider: Carlos A Herr Primary Care Provider: Nalini Escobedo Other Providers: Eric Robbins ; Tray Cheema ; Cheko Cohen Other Interventions: Discharge Summary Assessment (RN) Last Done: 04/08/22 18:58 Coding Level of Care Code HOSP INP/OBS DISCH >30 MIN Diagnoses Pleuritic chest pain R07.81 Sepsis A41.9 Acute pericarditis I30.9 Mediastinitis J98.51 Esophageal rupture K22.3 Hyponatremia E87.1 Pericardial effusion I31.39 Jejunostomy tube present Z93.4 Hypothyroidism E03.9 Hypertension I10 Elevated troponin R77.8 DVT prophylaxis Z29.9 Wound of left upper extremity S41.102A
[2022-04-09] MEDS ORDERED: VANCOMYCIN LEVEL ONE (03:30)
--- NOTE | 2022-04-09 11:28 | Electrocardiogram Report ---
Test Reason : Blood Pressure : / mmHG Vent. Rate : 129 BPM Atrial Rate : 129 BPM P-R Int : 152 ms QRS Dur : 086 ms QT Int : 292 ms P-R-T Axes : 053 049 018 degrees QTc Int : 427 ms Sinus tachycardia Nonspecific T wave abnormality Abnormal ECG When compared with ECG of 07-APR-2022 03:16, Nonspecific T wave abnormality now evident in Anterior leads Confirmed by Connor Boyce ([id number]) on 04/09/2022 11:27:36 AM Referred By: Nalini Escobedo Confirmed By:Eric Boyce
--- NOTE | 2022-04-11 13:11 | Coding Query ---
CODING QUERY To promote full compliance with coding requirements relating to patient care, provider participation is requested in all cases of field support specialist uncertainty. Please assist us with the question(s) below: Coding Question(s): Sepsis is documented with documentation, as on Discharge Summary, under Hospital Course of Sepsis 2nd to #3 & #4, with #3 as Acute pericarditis and #4 as Mediastinitis, and also on Discharge Summary, in the Principal Diagnosis area as Sepsis 2nd to #1 with #1 as Suspected Mediastinitis. There is also documentation of h/o esophageal rupture with repair & esophageal stent placement - 03/10/22 - [facility]. Please specify below in your clinical opinion, regarding the documented source(s) of the Sepsis: ( x ) the source(s) of Sepsis (suspected Mediastinitis, acute pericarditis) are Infectious Mediastinitis and Pericarditis. Please specify further below, in your clinical opinion: ( x ) most likely postprocedural infection ( ) Not likely postprocedural infection ( ) Other: Please Specify ( ) the source(s) of Sepsis (suspected Mediastinitis, acute pericarditis) are Non-infectious. Please specify further below, in your clinical opinion: ( ) most likely postprocedural complication ( ) Not likely postprocedural complication ( ) Other: Please Specify ( ) Other: Please Specify Physician's Response(s): Thank you Yadira Martel Principal Diagnosis: "that condition established after study, to be chiefly responsible for occasioning the admission of the patient to the hospital for care." Co-Existing Principal Diagnosis: "when two or more diagnoses equally meet the criteria for principal diagnosis as determined by the circumstances of admission, diagnostic work up, and/or therapy provided, and the Alphabetic Index, Tabular List, or another coding guideline does not provide sequencing direction, any one of the diagnoses may be sequenced first." "When the physician has documented what appears to be a current diagnosis in the body of the record, but has not included the diagnosis in the final diagnostic statement, the physician should be asked whether the diagnosis should be added." (Source Coding Clinic 2 QTR90. p3-4) ERIKA
== END 2022-04-08 19:46 | disposition short-term general hospital (02) | DRG 862 ==
LOC: ED 03:10 → 2E 10:19